=== PATIENT | male | born 1975 | race Caucasian/White ===

== ENCOUNTER 2023-11-13 08:15 | Emergency (ER) | payer OTHER, SELFPAY ==
[2023-11-13 08:23] VITALS: BP 162/86
--- NOTE | 2023-11-13 08:52 | ED.GENMED ---
History of Present Illness
General
Chief Complaint: Abdominal Symptoms
Source: patient
Exam Limitations: none
Time Seen by Provider: 11/13/23 08:28
Nursing documentation reviewed up to this point in time: agreed with
History of Present Illness
History of Present Illness:
Patient is a 48-year-old male who presents to the ER for evaluation. Patient reports since Friday, for the past 3 days he has had intermittent vomiting and watery diarrhea. He has had in general the symptoms since September but the symptoms have seemed
to increase over the past 3 days. At times he reports he gets constipated. He feels abdominal discomfort and bloating. He reports this feels similar to when he had C. difficile 4 to 5 months ago. He does report he recently was on amoxicillin
last week for sinus infection. He denies any bloody diarrhea. Denies any fever or chills. He denies any weight loss. His last colonoscopy was 1 year ago. He denies any fever chills urinary problems.
Past History
Past History
ED Past Medical History: HTN, Other and Other
ED Past Surgical History: Other
Social History
Tobacco: Smoker
Alcohol: None
Personal:
Living: with family
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
Family History
Family History: Hypertension and Early CAD (dad - stents placed in his 50's grandfather - [place] in his 50's)
Review of Systems
Review of Systems
Allergies reviewed?: Yes
All Other Systems: ROS reviewed and negative except as documented in HPI and ROS
Constitutional: Reports no symptoms; Denies fever, fatigue or chills
EENT: Reports no symptoms
Respiratory: Reports no symptoms
Cardiac: Reports no symptoms
ABD/GI: Reports abdominal pain, nausea, vomiting and diarrhea
: Reports no symptoms
Skin: Reports no symptoms
Neurological: Reports no symptoms
Psychiatric: Reports no symptoms
Phy Exam
General Physical Exam
General Presentation: no apparent distress
General age: appears stated age
General Skin: warm and dry
General Habitus: normal
General Mental: alert
General Hydration: dry mucous membranes
Gastrointestinal Exam
Gastrointestinal Exam: soft and other (non specific abd tenderness)
Neurological Exam
Neurological Exam: alert and oriented x3
Musculoskeletal Exam
Musculoskeletal Exam: full ROM
Skin Exam
Skin Exam: normal color and warm/dry
Course
Orders/Labs/Results
Orders:
Orders
11/13/23 08:48
IV Insert/Care/Rem.- Treatment PRN
11/13/23 08:49
CT Abd/Pel (IV only)-DH only Urgent
Comment:
Reason For Exam: abd pain bloating diarrhea/vomiting
11/13/23 08:50
0.9% Sodium Chloride 1000 ml [Nss] 1,000 ml IV BOLUS
11/13/23 09:23
Complete Blood Count/With Diff Urgent
Comprehensive Metabolic Panel Urgent
Lipase Urgent
11/13/23 11:33
Urinalysis Reflex To Culture Urgent
Date Specimen was Collected: 11/13/23
Time Specimen was Collected: 11:27
C DIFF [C difficile Antigen & Toxins] Urgent
EZEQUIEL Source: Feces/Stool
Specimen Description:
Date Specimen was Collected: 11/13/23
Time Specimen was Collected: 11:27
11/13/23 11:34
Stool Culture Urgent
EZEQUIEL Source: Feces/Stool
Specimen Description:
Date Specimen was Collected: 11/13/23
Time Specimen was Collected: 11:27
Abnormal Lab Results
11/13/23 11/13/23
09:23 11:33
Absolute Neuts (auto) 6.8 H 10^3/uL
(1.4-6.5)
Lymphocytes % 15.9 L %
(20.5-51.1)
Sodium 133 L mmol/L
(135-145)
Potassium 3.4 L mmol/L
(3.5-5.1)
Glucose 165 H mg/dl
(70-99)
Total Bilirubin 2.6 H mg/dl
(0.2-1.3)
Urine Glucose 3+ A
(Negative)
11/13/23 09:23
11/13/23 09:23
Vital Signs
Initial and Last Documented VS:
Initial Vital Signs
Temp Pulse Resp BP Pulse Ox
98.8 F 104 18 162/86 96
11/13/23 08:23 11/13/23 08:23 11/13/23 08:23 11/13/23 08:23 11/13/23 08:23
Last Documented Vital Signs
Temp Pulse Resp BP Pulse Ox
98.8 F 89 18 138/77 95
11/13/23 08:23 11/13/23 11:30 11/13/23 11:30 11/13/23 11:30 11/13/23 11:30
MDM/Problems Addressed
Differential Diagnosis Includes:
not limited to: c diff viral syndrome, colitis.
MDM/Problems Addressed:
Patient is a 48-year-old male that complains of intermittent bloating nausea diarrhea constipation off and on since September. He complains of intermittent constipation diarrhea nausea bloating. No weight loss. History of C. difficile in the past was
recently on antibiotics and concerned about C. difficile. He presents awake alert no acute distress mild nonspecific abdominal tenderness no acute findings on CAT scan. Labs unremarkable. Patient does have an elevated bilirubin which is baseline
for him in the past. C. difficile negative. He is nontoxic no nausea vomiting here offered nausea medicine but he declined.
Will DC with outpatient GI follow-up
*Radiology
Radiology exam reviewed: radiology read reviewed
*Pulse Oximetry
Patient hypoxic: no
*Critical Care Note
Total Time (30-74mins, 75-104mins- exclusive of procedures): Not Applicable
ED Attending Note
-
Portions of this chart may have been created with voice recognition software.� Occasional wrong word or��sound alike� substitutions may have occurred due to the inherent limitations of voice recognition software.
Discharge Plan
Departure
Patient Disposition: Home (Routine Discharge)
Date of Disposition: 11/13/23
Time of Disposition: 13:19
Patient with high blood pressure during this ER visit?: Yes
Covid-19: Not Applicable
Discharge Problem:
Abdominal pain
Instructions: Abdominal Pain, BLOOD PRESSURE
Prescriptions:
No Action
atorvastatin 20 mg Tablet
20 mg PO DAILY
meloxicam 15 mg Tablet
15 mg PO QPM
nortriptyline 25 mg Capsule
25 mg PO BID
pregabalin 150 mg Capsule
150 mg PO BID
dapagliflozin propanediol [Farxiga] 5 mg Tablet
5 mg PO DAILY
Drysol Dab-O-Matic 20 % Solution
1 applic TOPICAL HSPRN PRN (Reason: excessive sweating)
Theragen Tablet
1 tab PO DAILY
metformin 500 mg Tablet Extended Release 24 Hr
1,500 mg PO QPM
buprenorphine-naloxone 8-2 mg Film
0.5 film BUCCAL BID
testosterone 20.25 mg/1.25 gram (1.62 %) Gel In Metered-Dose Pump
1 pump TOPICAL DAILY
Qbrexza 2.4 % Towelette
1 applic TOPICAL HSPRN PRN (Reason: forehead/stomach)
Patient Comments:
11/13/2023, prescribed HS but pt. takes HSPRN because he has trouble peeing after using it.
Ozempic 1 mg/dose (4 mg/3 mL) Pen Injector
2 mg SC GONZALEZ@0800
vitamin D3-vitamin K2
1 tab PO DAILY
Patient Comments:
11/13/2023, pt. unsure of strength.
Referrals:
Reji Melendez MD [Active] -
Roge Fulton MD [Family Provider] -
Activity Restrictions/Additional Instructions:
As discussed follow-up with your family doctor as well as GI specialist for further evaluation of symptoms. Return to the ER for any worsening of symptoms. Your labs were unremarkable. Your bilirubin which is elevated today has been elevated
several times the past .please follow-up with your family doctor to ensure that this is normal for you.
Interventions
Interventions:
*Risk Screen - Suicide Last Done: 11/13/23 08:23
*General Assessment Last Done: 11/13/23 08:23
*Neglect/Abuse Screening Last Done: 11/13/23 08:23
*ED COVID-19 Vaccine History Last Done: 11/13/23 08:23
Discharge Date and Time
Print Language: ITALIAN
[2023-11-13] MEDS: NSS 1000 IV (09:21)
[2023-11-13 09:25] VITALS: BMI 42.1
[2023-11-13 09:36] LABS: % Basophils 0.2 % (0-2); % Eosinophils 2.8 % (0-6); % Immature Granulocytes 0.3 % (0-0.5); % Lymphocytes 15.9 % (20.5-51.1); % Monocytes 6.4 % (1.7-9.3); % Neutrophils 74.4 % (42.2-75.2); Absolute Eosinophils 0.3 10^3/uL (0-0.7); Absolute Lymphocytes 1.5 10^3/uL (1.2-3.4); Absolute Monocytes 0.6 10^3/uL (0.1-0.6); Absolute Neutrophils 6.8 10^3/uL (1.4-6.5); Hematocrit 41.6 % (39.0-52.0); Hemoglobin 14.8 g/dL (13.0-18.0); Mean Corp Hgb Conc. 35.6 g/dL (33.0-37.0); Mean Corpuscular Hgb 29.8 pg (27.0-31.0); Mean Corpuscular Volume 83.9 fL (80.0-94.0); Mean Platelet Volume 9.1 fL (7.4-10.4); Nucleated Red Blood Cells % 0 % (-); Platelet Count 170 10^3/uL (130-400); Red Blood Cell Count 4.96 10^6/uL (4.70-6.10); Red Cell Dist. Width 13.6 % (11.5-14.5); White Blood Cell Count 9.2 10^3/uL (4.8-10.8)
[2023-11-13 09:50] LABS: ALT (SGPT) 46 U/L (0-50); AST (SGOT) 32 U/L (17-59); Albumin 4.2 g/dl (3.5-5.0); Alkaline Phosphatase 68 U/L (38-126); Blood Urea Nitrogen 12 mg/dl (9-20); Calcium 8.7 mg/dl (8.4-10.2); Carbon Dioxide 23 mmol/L (22-30); Chloride 101 mmol/L (98-107); Estimated Creatinine Clearance > 125 ml/min; Glucose 165 mg/dl (70-99); Lipase 32 U/L (23-300); Potassium 3.4 mmol/L (3.5-5.1); Sodium 133 mmol/L (135-145); Total Bilirubin 2.6 mg/dl (0.2-1.3); Total Protein 6.8 g/dl (6.3-8.2); eGFR > 60.00
[2023-11-13 11:30] VITALS: BP 138/77
[2023-11-13 12:02] LABS: Urine Albumin Negative (Neg - Trace); Urine Bilirubin Negative (Negative); Urine Character Clear (Clear); Urine Color Yellow; Urine Glucose 3+ (Negative); Urine Ketone Negative (Negative); Urine Leukocyte Negative (Negative); Urine Nitrite Negative (Negative); Urine Occult Blood Negative (Negative); Urine Specific Gravity 1.005 (<1.030); Urine Urobilinogen Negative (Neg - 1+)
== END 2023-11-13 14:22 | disposition home or self-care (01) ==
LOC: EMR 08:15
PROVIDERS: Nurse Practitioner; EMERGENCY PHYSICIAN Emergency Medicine; FAMILY PHYSICIAN Internal Medicine
DX: R11.2 Nausea with vomiting, unspecified (principal); R19.7 Diarrhea, unspecified; K59.00 Constipation, unspecified; I10 Essential (primary) hypertension; F17.200 Nicotine dependence, unspecified, uncomplicated; Z82.49 Family history of ischemic heart disease and other diseases of the circulatory system
CPT/HCPCS: 99284; 96360; 74177; 80053; 81003; 83690; 85025; 87045; 87046; 87324; 87427; 87449; Q9967

== ENCOUNTER 2024-01-06 08:02 | Day surgery (SDC) | payer OTHER, SELFPAY ==
[2024-01-06 09:20] VITALS: BMI 40.4
[2024-01-06 09:21] VITALS: BMI 40.4
[2024-01-06 09:22] VITALS: BP 135/69
[2024-01-06 09:24] LABS: Glucose - Point of Care 151 mg/dl (70-99)
[2024-01-06 11:12] VITALS: BP 121/76
[2024-01-06 11:15] VITALS: BP 122/73
[2024-01-06 11:30] VITALS: BP 109/54
== END 2024-01-06 11:55 | disposition home or self-care (01) ==
LOC: GI 08:02
PROVIDERS: ATTENDING PHYSICIAN Specialist
DX: R11.2 Nausea with vomiting, unspecified (principal); R10.84 Generalized abdominal pain; K29.50 Unspecified chronic gastritis without bleeding
CPT/HCPCS: 43239; 88305; 82962; 88342

== ENCOUNTER → 2024-03-05 07:49 | Outpatient (REF) | payer OTHER, SELFPAY | LOC: RAD 07:49 | PROVIDERS: ATTENDING PHYSICIAN Specialist; FAMILY PHYSICIAN Family Medicine | DX: R11.2 Nausea with vomiting, unspecified (principal) | CPT/HCPCS: 78264; A9541 ==

== ENCOUNTER 2024-06-06 09:04 | Emergency (ER) | payer OTHER, SELFPAY ==
[2024-06-06 09:08] VITALS: BP 166/91
[2024-06-06 09:55] VITALS: BP 172/76
[2024-06-06 10:00] VITALS: BP 151/66
[2024-06-06 10:18] LABS: % Basophils 0.3 % (0-2); % Eosinophils 0.1 % (0-6); % Immature Granulocytes 0.4 % (0-0.5); % Lymphocytes 4.2 % (20.5-51.1); % Monocytes 5.6 % (1.7-9.3); % Neutrophils 89.4 % (42.2-75.2); Absolute Basophils 0.1 10^3/uL (0-0.2); Absolute Immature Granulocytes 0.1 10^3/uL (0-0.05); Absolute Lymphocytes 0.7 10^3/uL (1.2-3.4); Absolute Neutrophils 15.2 10^3/uL (1.4-6.5); Hematocrit 41.3 % (39.0-52.0); Hemoglobin 14.9 g/dL (13.0-18.0); Mean Corp Hgb Conc. 36.1 g/dL (33.0-37.0); Mean Corpuscular Hgb 30.2 pg (27.0-31.0); Mean Corpuscular Volume 83.8 fL (80.0-94.0); Mean Platelet Volume 9.5 fL (7.4-10.4); Nucleated Red Blood Cells % 0 % (-); Platelet Count 149 10^3/uL (130-400); Red Blood Cell Count 4.93 10^6/uL (4.70-6.10); Red Cell Dist. Width 13.4 % (11.5-14.5)
[2024-06-06 10:20] LABS: COVID-19 Antigen Positive (Negative)
[2024-06-06] MEDS: TYLENOL 1000 MG PO (10:26)
[2024-06-06 10:28] LABS: ALT (SGPT) 22 U/L (0-50); AST (SGOT) 21 U/L (17-59); Albumin 4.7 g/dl (3.5-5.0); Alkaline Phosphatase 72 U/L (38-126); Blood Urea Nitrogen 16 mg/dl (9-20); Calcium 8.8 mg/dl (8.4-10.2); Carbon Dioxide 23 mmol/L (22-30); Chloride 94 mmol/L (98-107); Glucose 165 mg/dl (70-99); Potassium 4.1 mmol/L (3.5-5.1); Sodium 132 mmol/L (135-145); Total Bilirubin 2.7 mg/dl (0.2-1.3); Total Protein 7.3 g/dl (6.3-8.2); eGFR > 60.00
--- NOTE | 2024-06-06 10:43 | ED.GENMED ---
History of Present Illness
General
Chief Complaint: Cold/Flu/URI Symptoms
Time Seen by Provider: 06/06/24 09:51
History of Present Illness
History of Present Illness:
49-year-old male with history of obstructive sleep apnea and prediabetes presenting to the emergency department for cough, shortness of breath, congestion, fever. Notes symptoms for the past 2 days. Denies known sick contacts. Reports history of
COVID in the past, however this feels worse. Denies chest pain. Denies any abdominal pain or GI symptoms.
Past History
Past History
ED Past Medical History: HTN, Other and Other
ED Past Surgical History: Other
Social History
Tobacco: Smoker
Alcohol: None
Personal:
Living: with family
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
Family History
Family History: Hypertension and Early CAD (dad - stents placed in his 50's grandfather - [place] in his 50's)
Phy Exam
Physical Exam
Physical Exam:
General: Well-appearing, no clinical signs of dehydration, nontoxic and in no acute distress
HEENT: protecting airway
Neck: appears supple
CV: Normal heart rate, regular rhythm
Resp: No accessory muscle use, no increased work of breathing, lungs clear to auscultation bilaterally
Abd: Soft and non-distended, no tenderness to palpation
Extremities: No deformities, no swelling
Neuro: alert, no focal neurologic deficit
: deferred
Rectal: deferred
Psych: Normal affect
Skin: Intact
Sepsis
Sepsis Screening
Sepsis Assessment: Sepsis Ruled Out
Sepsis Screen
Sepsis Screen: Sepsis Ruled Out
Date: 06/06/24
Time: 14:52
Course
Orders/Labs/Results
Orders:
Orders
06/06/24 09:16
Electrocardiogram (*1) Urgent
Reason for Study: Other
Other Reason for Exam: Possible Sepsis
Cardiac Monitoring- Treatment ONCE
EKG- Treatment ONCE
IV Insert/Care/Rem.- Treatment PRN
O2 Therapy [RESP] Urgent
Titrate/Wean O2 to maintain O2 sat greater than (%): 93
Special Instructions: TO MAINTAIN CONTINUOUS O2 SATS > OR = 93%
Pulse Ox/cont/shift [RESP] Urgent
Quantity: 1
Special Instructions: CONTINUOUS
06/06/24 10:06
COVID-19 Antigen Urgent
Source: Nasal Swab
Complete Blood Count/With Diff Urgent
Comprehensive Metabolic Panel Urgent
Lactic Acid Q4H
Comment: ON ICE, CANCEL 2ND ORDER IF FIRST LACTIC ACID LEVEL <2
Influenza A+B Rapid Molecular Urgent
EZEQUIEL Source: Nasal Swab
Specimen Description:
06/06/24 10:24
Acetaminophen [Tylenol] 1,000 mg PO NOW STA
CR Chest - 2 Views Urgent
Comment:
Reason For Exam: covid, sob
Abnormal Lab Results
06/06/24
10:06
WBC 17.0 H 10^3/uL
(4.8-10.8)
Abs Immat Gran (auto) 0.1 H 10^3/uL
(0-0.05)
Absolute Neuts (auto) 15.2 H 10^3/uL
(1.4-6.5)
Absolute Lymphs (auto) 0.7 L 10^3/uL
(1.2-3.4)
Absolute Monos (auto) 1.0 H 10^3/uL
(0.1-0.6)
Neutrophils % 89.4 H %
(42.2-75.2)
Lymphocytes % 4.2 L %
(20.5-51.1)
Sodium 132 L mmol/L
(135-145)
Chloride 94 L mmol/L
(98-107)
Creatinine 0.5 L mg/dL
(0.7-1.3)
Glucose 165 H mg/dl
(70-99)
Total Bilirubin 2.7 H mg/dl
(0.2-1.3)
SARS-CoV-2 Antigen Positive A
(Negative)
06/06/24 10:06
06/06/24 10:06
Vital Signs
Initial and Last Documented VS:
Initial Vital Signs
Temp Pulse Resp BP Pulse Ox
102.9 F H 115 22 166/91 93
06/06/24 09:08 06/06/24 09:08 06/06/24 09:08 06/06/24 09:08 06/06/24 09:08
Last Documented Vital Signs
Temp Pulse Resp BP Pulse Ox
100.2 F 106 20 140/80 93
06/06/24 12:00 06/06/24 12:00 06/06/24 12:00 06/06/24 12:31 06/06/24 12:31
MDM/Problems Addressed
MDM/Problems Addressed:
49-year-old male with history of obstructive sleep apnea presenting for cough, shortness of breath, congestion. Vital signs arrival significant for fever and mild tachycardia.
On exam patient is in no acute respiratory distress. Mildly low oxygenation, low normal. However lungs clear to auscultation. In the setting of fever and cough, concern for pneumonia versus viral syndrome such as COVID or influenza. Plan for
chest x-ray imaging, viral swabs. Will treat patient with IV fluids, Tylenol and reassess for improvement with plan for ambulatory pulse ox for assessment of O2 needs.
12:30 - Patient's labs show leukocytosis. Chest x-ray is consistent with a COVID-pneumonia. On ambulation, no acute desaturation. At this time stable for discharge, however strict return precautions were communicated including any increased
dyspnea. Patient verbalized understanding
*Critical Care Note
Total Time (30-74mins, 75-104mins- exclusive of procedures): Not Applicable
ED Attending Note
-
Portions of this chart may have been created with voice recognition software.� Occasional wrong word or��sound alike� substitutions may have occurred due to the inherent limitations of voice recognition software.
Discharge Plan
Departure
Patient Disposition: Home (Routine Discharge)
Date of Disposition: 06/06/24
Time of Disposition: 12:29
Patient with high blood pressure during this ER visit?: Yes
Condition: Good
Discharge Problem:
Pneumonia due to COVID-19 virus
Instructions: COVID-19 in adults - Discharge instructions, BLOOD PRESSURE
Prescriptions:
No Action
atorvastatin 20 mg Tablet
20 mg PO DAILY
meloxicam 15 mg Tablet
15 mg PO QPM
nortriptyline 25 mg Capsule
25 mg PO BID
pregabalin 150 mg Capsule
150 mg PO BID
dapagliflozin propanediol [Farxiga] 5 mg Tablet
5 mg PO DAILY
Drysol Dab-O-Matic 20 % Solution
1 applic TOPICAL HSPRN PRN (Reason: excessive sweating)
Theragen Tablet
1 tab PO DAILY
metformin 500 mg Tablet Extended Release 24 Hr
1,500 mg PO QPM
buprenorphine-naloxone 8-2 mg Film
0.5 film BUCCAL BID
testosterone 20.25 mg/1.25 gram (1.62 %) Gel In Metered-Dose Pump
1 pump TOPICAL DAILY
Qbrexza 2.4 % Towelette
1 applic TOPICAL HSPRN PRN (Reason: forehead/stomach)
Patient Comments:
11/13/2023, prescribed HS but pt. takes HSPRN because he has trouble peeing after using it.
Ozempic 1 mg/dose (4 mg/3 mL) Pen Injector
2 mg SC GONZALEZ@0800
vitamin D3-vitamin K2
1 tab PO DAILY
Patient Comments:
11/13/2023, pt. unsure of strength.
Referrals:
Ruddy Bryan MD [Family Provider] -
Stand Alone Forms: Return to Work
Activity Restrictions/Additional Instructions:
You were seen in the emergency department for cough and upper respiratory symptoms
You were found to have COVID-19. Your chest x-ray did show signs of COVID-pneumonia. Please return immediately to the hospital with any increased difficulty breathing. Continue to take Tylenol and Motrin as needed for your fevers
Please follow-up closely with your primary care physician.
Return to the emergency department for any worsening of your symptoms, or any development of chest pain, difficulty breathing, abdominal pain with persistent vomiting and inability to tolerate food or liquid by mouth (concern for dehydration),
weakness, headache or confusion, fever greater than 100.4, or any additional symptoms that are concerning to you.
Thank you for choosing [facility].
Interventions
Interventions:
*Risk Screen - Suicide Last Done: 06/06/24 09:08
*General Assessment Last Done: 06/06/24 09:08
*Neglect/Abuse Screening Last Done: 06/06/24 09:08
ED- Fall Risk Assessment Last Done: 06/06/24 12:47
*ED COVID-19 Vaccine History Last Done: 06/06/24 09:56
*Nursing Disposition Last Done: 06/06/24 12:47
ED- Pulmonary Assessment Last Done: 06/06/24 09:56
Discharge Date and Time
Discharge Date/Time: 06/06/24 12:51
Print Language: ARABIC
[2024-06-06 11:00] VITALS: BP 146/72
[2024-06-06 12:31] VITALS: BP 140/80
== END 2024-06-06 12:51 | disposition home or self-care (01) ==
LOC: EMR 09:04
PROVIDERS: EMERGENCY PHYSICIAN Student in an Organized Health Care Education/Training Program; FAMILY PHYSICIAN Family Medicine
DX: U07.1 COVID-19 (principal); J12.82 Pneumonia due to coronavirus disease 2019; R00.0 Tachycardia, unspecified; Z11.52 Encounter for screening for COVID-19; G47.33 Obstructive sleep apnea (adult) (pediatric); I10 Essential (primary) hypertension; F17.200 Nicotine dependence, unspecified, uncomplicated; R73.03 Prediabetes; Z86.16 Personal history of COVID-19
CPT/HCPCS: 99285; 94760; 71046; 80053; 83605; 85025; 87502; 87811; 93005

== ENCOUNTER 2024-11-22 16:05 | Emergency (ER) | payer OTHER, SELFPAY ==
[2024-11-22 16:08] VITALS: BP 151/92
[2024-11-22 16:50] LABS: Hematocrit 40.4 % (39.0-52.0); Hemoglobin 14.6 g/dL (13.0-18.0); Mean Corp Hgb Conc. 36.1 g/dL (33.0-37.0); Mean Corpuscular Volume 84.3 fL (80.0-94.0); Nucleated Red Blood Cells % 0 % (-); Platelet Count 156 10^3/uL (130-400); Red Cell Dist. Width 12.7 % (11.5-14.5)
[2024-11-22 17:11] LABS: ALT (SGPT) 28 U/L (0-50); AST (SGOT) 23 U/L (17-59); Albumin 4.6 g/dl (3.5-5.0); Alkaline Phosphatase 63 U/L (38-126); Blood Urea Nitrogen 13 mg/dl (9-20); Calcium 8.8 mg/dl (8.4-10.2); Carbon Dioxide 21 mmol/L (22-30); Chloride 102 mmol/L (98-107); Glucose 210 mg/dl (70-99); Potassium 3.9 mmol/L (3.5-5.1); Sodium 132 mmol/L (135-145); Total Protein 6.8 g/dl (6.3-8.2); eGFR > 60.00
[2024-11-22 17:13] LABS: Troponin I < 0.012 ng/ml
[2024-11-22 19:31] VITALS: BP 139/69
--- NOTE | 2024-11-22 19:56 | ED.GENMED ---
History of Present Illness
General
Chief Complaint: Blood Pressure Problem
Source: patient and spouse
Time Seen by Provider: 11/22/24 19:33
History of Present Illness
History of Present Illness:
This patient is a 49-year-old male who states that recently he was diagnosed with migraines and was started on a new medication. He describes a typical migraine as 'pressure' typically on the top/back of his head associated with blurry vision,
occasional nausea, and phono and photophobia. On Friday, he developed a typical migraine for him described as this pressure associated with blurry vision and feeling flushed. He also noticed that his heart was racing which he said felt like 'an
anxiety' type of racing. He took his migraine medication with minimal relief of symptoms. Symptoms continued yesterday and a family member checked his blood pressure and it was noted to be 180/90. He states that he does not have an established
prior medical history of hypertension and has not treated for it. He was encouraged by his family to go to the emergency department yesterday but he declined. Today, he notes his symptoms are markedly improved, but was finally convinced to go to
the ER to get 'checked out'. He denies numbness, tingling, focal weakness, change in speech, change in balance, double vision, trouble swallowing, chest pain or pressure, back pain that is new, dyspnea, abdominal pain, or other complaints. He
describes his headache as mild. His headache when it developed was not sudden or maximal in onset, and is without radiation.
Past History
Past History
ED Past Medical History: HTN, Hypercholesterolemia and Other (Prediabetes, chronic pain, migraines)
ED Past Surgical History: Other (Spinal stimulator, appendectomy, back surgery)
Social History
Tobacco: Former smoker
Alcohol: None
Drug: None
Personal:
Living: with family
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
Family History
Family History: Hypertension and Early CAD (dad - stents placed in his 50's grandfather - [place] in his 50's)
Phy Exam
Physical Exam
Physical Exam:
GENERAL: Alert , in no apparent distress
EYE: pupils equal and reactive, EOMI, no nystagmus, no objective photophobia
NECK: Supple, no significant adenopathy.
ENT: o/p clr, mmm.
CARDIAC: Regular rate and rhythm .
LUNGS: Clear breath sounds bilaterally, no acute respiratory distress, no wheezes/rales/rhonchi
ABDOMEN: Soft, without focal tenderness, no r/g, no cvat
NEUROLOGICAL: Alert and oriented, no focal neuro deficits with the exception of chronic longstanding motor weakness and right foot, [id number] normal, motor 5 out of 5 except as stated, sensory intact, cranial nerves II through XII intact,
visual treviño intact
SKIN: Warm and dry, skin intact.
MUSCULOSKELETAL: No edema, well perfused.
PSYCH: Normal and appropriate interaction.
Course
Orders/Labs/Results
Orders:
Orders
11/22/24 16:10
Electrocardiogram (*1) Urgent
Reason for Study: Hypertension, Benign
CT Head W/o Iv Contrast Urgent
Comment:
Reason For Exam: head pressure with blurry vision
EKG- Treatment ONCE
11/22/24 16:32
Complete Blood Count/With Diff Urgent
Comprehensive Metabolic Panel Urgent
Troponin I Urgent
Abnormal Lab Results
11/22/24
16:32
Sodium 132 L mmol/L
(135-145)
Carbon Dioxide 21 L mmol/L
(22-30)
Creatinine 0.5 L mg/dL
(0.7-1.3)
Glucose 210 H mg/dl
(70-99)
Total Bilirubin 1.6 H mg/dl
(0.2-1.3)
11/22/24 16:32
11/22/24 16:32
Vital Signs
Initial and Last Documented VS:
Initial Vital Signs
Temp Pulse Resp BP Pulse Ox
98.2 F 89 20 151/92 96
11/22/24 16:08 11/22/24 16:08 11/22/24 16:08 11/22/24 16:08 11/22/24 16:08
Last Documented Vital Signs
Temp Pulse Resp BP Pulse Ox
98.2 F 89 20 151/92 96
11/22/24 16:08 11/22/24 16:08 11/22/24 16:08 11/22/24 16:08 11/22/24 16:08
*Pulse Oximetry
SaO2: 96
Oxygen Mode of Delivery: Room air
Update Note
Update Note:
Patient presents to the Emergency Department with __headache, blurry vision, palpitations, elevated blood pressure
Number and Complexity of Problems Addressed at the Encounter
� Chronic conditions affecting care:
� Acute Exacerbation and/or Progression of Chronic Illness:
� Differential Diagnosis includes: But not limited to migraine, anxiety, subarachnoid hemorrhage, CVA, tension headache, arrhythmia, eye injury/pathology, etc. etc.
Amount and/or Complexity of Data to be Reviewed and Analyzed
� I performed an independent evaluation of and my interpretation is:
EKG: Read by me, normal sinus rhythm, no acute ischemia
CT: Possible Chiari I malformation, mild volume loss, otherwise NAD. Note patient/ given copy of this report, verbally advised regarding these findings and the need for follow-up regarding
Xrays:
Laboratory Studies: Generally unremarkable, mild hyperglycemia
Other:
� Review of other/old records reveals:
� Clinical information was obtained by an independent historian: who is bedside
� Prescriptions/Medications Considered but not given:
� Further testing considered but not performed:
Risk of Complications and/or Morbidity or Mortality of Patient Management
� Social determinants of health affecting care:
� Discussion with other providers (PCP, Hospitalists, Consultants, etc):
� Escalation of care including admission/observation vs risk of discharge considered: Blood pressure noted to be elevated here however I would not recommend at this time beginning hypertensive medication but rather very close
follow-up within the next 24 to 48 hours with his doctor. Patient has strong social support and established relationship with a physician that he can see promptly. He will also bring his CAT scan report. He declines any medication for pain. His
neurological exam is normal/baseline, and does not demonstrate any 'red flag' findings in history or physical to suggest more worrisome etiologies such as subarachnoid, stroke, etc. Eye exam is normal. Discussed with patient importance of
follow-up and reasons to return the ER.
ED Attending Note
-
Portions of this chart may have been created with voice recognition software.� Occasional wrong word or��sound alike� substitutions may have occurred due to the inherent limitations of voice recognition software.
Discharge Plan
Departure
Patient Disposition: Home (Routine Discharge)
Date of Disposition: 11/22/24
Time of Disposition: 20:03
Patient with high blood pressure during this ER visit?: Yes
Condition: Good
Discharge Problem:
Headache
Instructions: Headaches in adults, BLOOD PRESSURE
Prescriptions:
No Action
atorvastatin 20 mg Tablet
20 mg PO DAILY
meloxicam 15 mg Tablet
15 mg PO QPM
nortriptyline 25 mg Capsule
25 mg PO BID
pregabalin 150 mg Capsule
150 mg PO BID
dapagliflozin propanediol [Farxiga] 5 mg Tablet
5 mg PO DAILY
Drysol Dab-O-Matic 20 % Solution
1 applic TOPICAL HSPRN PRN (Reason: excessive sweating)
Theragen Tablet
1 tab PO DAILY
metformin 500 mg Tablet Extended Release 24 Hr
1,500 mg PO QPM
buprenorphine-naloxone 8-2 mg Film
0.5 film BUCCAL BID
testosterone 20.25 mg/1.25 gram (1.62 %) Gel In Metered-Dose Pump
1 pump TOPICAL DAILY
Qbrexza 2.4 % Towelette
1 applic TOPICAL HSPRN PRN (Reason: forehead/stomach)
Patient Comments:
11/13/2023, prescribed HS but pt. takes HSPRN because he has trouble peeing after using it.
Ozempic 1 mg/dose (4 mg/3 mL) Pen Injector
2 mg SC GONZALEZ@0800
vitamin D3-vitamin K2
1 tab PO DAILY
Patient Comments:
11/13/2023, pt. unsure of strength.
Activity Restrictions/Additional Instructions:
IT IS VERY IMPORTANT THAT YOU SEE YOUR DOCTOR IN CLOSE FOLLOW-UP THIS WEEK. YOU ARE NOTED TO HAVE ELEVATED BLOOD PRESSURE WHICH NEEDS CLOSE ATTENTION. OF NOTE, THE MEDICATION THAT YOU ARE TAKING FOR MIGRAINE CAN CONTRIBUTE TO ELEVATED BLOOD
PRESSURE. ALSO, YOUR CAT SCAN REPORT HAS FINDINGS THAT NEED CLOSE FOLLOW-UP. IF YOU DEVELOP NEW RECURRENT OR WORSENING HEADACHE, ANY NUMBNESS, WEAKNESS, DOUBLE VISION, CHANGE IN SPEECH, CHANGE IN BALANCE, SEVERE NECK PAIN, OR OTHER WORRISOME
SIGNS, PLEASE RETURN TO THE ER IMMEDIATELY!
Interventions
Interventions:
*General Assessment Last Done: 11/22/24 16:08
Discharge Date and Time
Print Language: UKRAINIAN
[2024-11-22 19:58] VITALS: BMI 44.0
[2024-11-22 20:00] VITALS: BP 136/73
== END 2024-11-22 20:34 | disposition home or self-care (01) ==
LOC: EMR 16:05
PROVIDERS: Emergency Medicine; EMERGENCY PHYSICIAN Emergency Medicine; FAMILY PHYSICIAN Family Medicine
DX: R51.9 Headache, unspecified (principal); R11.0 Nausea; H53.8 Other visual disturbances; R23.2 Flushing; I10 Essential (primary) hypertension; E78.00 Pure hypercholesterolemia, unspecified; R73.03 Prediabetes; G89.29 Other chronic pain; Z87.891 Personal history of nicotine dependence
CPT/HCPCS: 99284; 70450; 80053; 84484; 85025; 93005

== ENCOUNTER 2025-01-19 14:26 | Inpatient (IN) | payer OTHER, SELFPAY ==
[2025-01-19] VITALS (11 sets, daily range): BP systolic 119–186; BP diastolic 67–122; BMI 43.2
--- NOTE | 2025-01-19 06:09 | ED.GENMED ---
History of Present Illness
General
Chief Complaint: Back Pain
Source: patient
Exam Limitations: none
Time Seen by Provider: 01/19/25 05:42
History of Present Illness
History of Present Illness:
50-year-old male complaining of right mid back pain. Came on at 10 PM last night. Has had this intermittently for months. Typically will last about a day. This current episode is more severe. This is different than his chronic low back pain but
has become a new issue. He typically gets trigger point injections by his pain management person at this site. He denies fever chills acute numbness tingling weakness bowel or bladder issues acutely.
Past History
Past History
ED Past Medical History: HTN, Hypercholesterolemia and Other (Prediabetes, chronic pain, migraines)
ED Past Surgical History: Other (Spinal stimulator, appendectomy, back surgery)
Social History
Tobacco: Former smoker
Alcohol: None
Drug: None
Personal:
Living: with family
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
Family History
Family History: Hypertension and Early CAD (dad - stents placed in his 50's grandfather - [place] in his 50's)
Phy Exam
Physical Exam
Physical Exam:
GENERAL: Alert and oriented in no apparent distress
EYE: Orbits normal.
NECK: Supple
CARDIAC: Regular rate and rhythm without any obvious murmurs.
LUNGS: Clear breath sounds,normal
ABDOMEN: Soft, without focal tenderness or distention
NEUROLOGICAL: Alert and oriented , speech normal. Grossly nonfocal except for some mild weakness to the right leg especially with dorsiflexion. This apparently is chronic
SKIN: Warm and dry, no rash or lesion, no discoloration, skin intact.
MUSCULOSKELETAL: No edema,no deformity.Good color. Some back pain with straight leg raising of the left leg. Able to sit up towards the side of the bed without difficulty. Lidocaine patch over the right mid back. Tenderness at this location no
swelling or erythema
PSYCH: Normal and appropriate interaction.
Course
Orders/Labs/Results
Orders:
Orders
01/19/25 05:55
IV Insert/Care/Rem.- Treatment PRN
0.9% Sodium Chloride 500 ml [Nss] 500 ml IV BOLUS
Acetaminophen 1000MG/100Ml [Ofirmev] 1,000 mg in 100 ml IV ONCE
Acetaminophen IV Indication:: ED Narcotic Naive Pt-ONCE
Ketorolac [Toradol] 15 mg IV NOW STA
diazePAM [Valium Injection] 5 mg IV NOW STA
01/19/25 05:56
CT Abd/pel Without Iv Or Oral Urgent
Comment:
Reason For Exam: Ongoing right mid back pain
01/19/25 06:26
Complete Blood Count/With Diff Urgent
Comprehensive Metabolic Panel Urgent
Comment: LFT ADD ON
Direct Bilirubin Urgent
Comment: LFT ADD ON
Lipase Urgent
Comment: ADD ON
01/19/25 06:28
Urinalysis Reflex To Culture Urgent
Date Specimen was Collected: 01/19/25
Time Specimen was Collected: 06:27
01/19/25 06:40
Add On- LAB Urgent
Tests Added?: lfts,lipase
01/19/25 08:43
US Abdomen Limited Urgent
Comment:
Reason For Exam: Right back pain. Gallstones. Elevated LFTs
01/19/25 11:22
Piperacillin/Tazo 3.375 Gram [Zosyn] 3.375 gram in 50 ml IV NOW
01/19/25 12:39
Ketorolac [Toradol] 15 mg IV NOW STA
Abnormal Lab Results
01/19/25 01/19/25
06:26 06:28
Absolute Neuts (auto) 8.8 H 10^3/uL
(1.4-6.5)
Absolute Lymphs (auto) 0.9 L 10^3/uL
(1.2-3.4)
Neutrophils % 85.0 H %
(42.2-75.2)
Lymphocytes % 8.9 L %
(20.5-51.1)
Creatinine 0.5 L mg/dL
(0.7-1.3)
Glucose 313 H mg/dl
(70-99)
Total Bilirubin 1.5 H mg/dl
(0.2-1.3)
Direct Bilirubin 0.9 H mg/dl
(0.0-0.4)
AST 114 H U/L
(17-59)
ALT 55 H U/L
(0-50)
Urine Urobilinogen 2+ A
(Neg - 1+)
Urine Glucose 4+ A
(Negative)
01/19/25 06:26
01/19/25 06:26
Vital Signs
Initial and Last Documented VS:
Initial Vital Signs
Temp Pulse Resp BP Pulse Ox
98.6 F 75 16 166/83 95
01/19/25 04:30 01/19/25 04:30 01/19/25 04:30 01/19/25 04:30 01/19/25 04:30
Last Documented Vital Signs
Temp Pulse Resp BP Pulse Ox
98.6 F 76 20 123/80 96
01/19/25 04:30 01/19/25 06:25 01/19/25 06:25 01/19/25 08:00 01/19/25 08:15
MDM/Problems Addressed
Differential Diagnosis Includes:
Patient with right mid back pain. Most likely a exacerbation of an ongoing back issue. He has no acute neurologic symptoms. Nothing to suspect an infectious issue. However with this location will check for kidney stone. Pain management include
NSAID IV Tylenol. He only took 1 dose of this in the last 24 hours. Also a dose of Valium. Patient is on Suboxone.
*Radiology
Radiology exam reviewed: radiology read reviewed (Distended gallbladder with gallstones. Similar to 1 year ago. Hepatomegaly. Enlarged spleen. Diverticulosis. Abdominal wall hernia. Degenerative changes) and other (Suspicious for acute
cholecystitis)
*Pulse Oximetry
SaO2: 95
Oxygen Mode of Delivery: Room air
Patient hypoxic: no
*Critical Care Note
Total Time (30-74mins, 75-104mins- exclusive of procedures): Not Applicable
Data Reviewed
Review of Other/Old Records Reveals: Labs, Records and Testing
Update Note
Update Note:
Patient feels moderately improved and is stable. He has findings on his CT that I do not feel acutely explain his ongoing back pain. The gallbladder distention has been similar. Await LFTs and lipase. Normal white count. No right upper quadrant
tenderness. Copy of CT report given to patient to follow-up enlarged spleen. LFTs mildly elevated. Ultrasound suspicious for acute cholecystitis. Seen by surgery. They agree. Admission for definitive management. Antibiotics ordered.
ED Attending Note
-
Portions of this chart may have been created with voice recognition software.� Occasional wrong word or��sound alike� substitutions may have occurred due to the inherent limitations of voice recognition software.
Discharge Plan
Departure
Patient Disposition: Admit
Date of Disposition: 01/19/25
Time of Disposition: 11:23
Presentation/result/management discussed w/ accepting MD/DO: Surgery
Discharge Problem:
Acute on chronic back pain, Cholelithiasis, Hepatosplenomegaly, Hyperglycemia, Incidental abdominal wall hernia
Instructions: Low Back Pain (DC), Gallstones (DC), High blood sugar in adults - ED (DC), BLOOD PRESSURE
Prescriptions:
No Action
atorvastatin 20 mg Tablet
20 mg PO DAILY
meloxicam 15 mg Tablet
15 mg PO QPM
nortriptyline 25 mg Capsule
25 mg PO BID
Theragen Tablet
1 tab PO DAILY
metformin 500 mg Tablet Extended Release 24 Hr
1,500 mg PO QPM
buprenorphine-naloxone 8-2 mg Film
1 film BUCCAL BID
testosterone 20.25 mg/1.25 gram (1.62 %) Gel In Metered-Dose Pump
1 pump TOPICAL DAILY
Qbrexza 2.4 % Towelette
1 applic TOPICAL HSPRN PRN (Reason: forehead/stomach sweating)
Patient Comments:
11/13/2023, prescribed HS but pt. takes HSPRN because he has trouble peeing after using it.
pregabalin 200 mg capsule
200 mg PO BID
Linzess 145 mcg capsule
145 mcg PO DAILY@0730
dapagliflozin propanediol [Farxiga] 10 mg tablet
5 mg PO DAILY
Referrals:
Alphonso Lott DO [Active, Hematology / Oncology] - Next open appointment
Ruddy Bryan MD [Family Provider, Family Practice] - Follow up in 2-3 days
Jesus Slaughter MD [Active, Surgical] - Next open appointment
Activity Restrictions/Additional Instructions:
I would recommend follow-up with hematology/oncology for your chronically enlarged spleen
I would also recommend follow-up with general surgery concerning your gallstones
Follow-up with your pain management tomorrow
Return sooner with increased pain fever abdominal pain vomiting or any other concerning symptoms
Follow your blood sugar closely for the hyperglycemia
Interventions
Interventions:
*Risk Screen - Suicide Last Done: 01/19/25 04:30
*General Assessment Last Done: 01/19/25 05:24
*Neglect/Abuse Screening Last Done: 01/19/25 05:24
*ED- Fall Risk Assessment Last Done: 01/19/25 05:24
*ED COVID-19 Vaccine History Last Done: 01/19/25 05:24
ED-Musculoskeletal Assessment Last Done: 01/19/25 05:24
Discharge Date and Time
Print Language: SOUTH [place]UDANESE
[2025-01-19] MEDS: NSS 500 IV (06:22)
[2025-01-19] MEDS: OFIRMEV 100 IV (06:23)
[2025-01-19] MEDS: VALIUM INJECTION 5 MG IV (06:24)
[2025-01-19] MEDS: TORADOL 15 MG IV ×2 (06:24→12:45)
[2025-01-19 06:39] LABS: Hematocrit 40.3 % (39.0-52.0); Hemoglobin 14.5 g/dL (13.0-18.0); Mean Corp Hgb Conc. 36.0 g/dL (33.0-37.0); Mean Corpuscular Volume 83.1 fL (80.0-94.0); Nucleated Red Blood Cells % 0 % (-); Platelet Count 161 10^3/uL (130-400); Red Cell Dist. Width 14.0 % (11.5-14.5)
[2025-01-19 06:45] LABS: Urine Character Clear (Clear)
[2025-01-19 06:59] LABS: Blood Urea Nitrogen 14 mg/dl (9-20); Calcium 9.3 mg/dl (8.4-10.2); Carbon Dioxide 25 mmol/L (22-30); Chloride 102 mmol/L (98-107); Glucose 313 mg/dl (70-99); Potassium 4.5 mmol/L (3.5-5.1); Sodium 136 mmol/L (135-145); eGFR > 60.00
[2025-01-19 08:37] LABS: ALT (SGPT) 55 U/L (0-50); AST (SGOT) 114 U/L (17-59); Albumin 4.7 g/dl (3.5-5.0); Alkaline Phosphatase 69 U/L (38-126); Lipase 51 U/L (23-300); Total Protein 6.9 g/dl (6.3-8.2)
--- NOTE | 2025-01-19 11:38 | CON.GS ---
Consultation
-
Date/Time Consultation Performed: 01/19/25
Requesting Provider: Dav
Performing Provider: Kasandra
Reason for Consultation: Biliary colic
Medical History
-
Chief Complaint: Back pain
History of Present Illness:
50m with acute onset back pain that began last night around 10pm. The pain was localized to his right mid back, non radiating, without clear exacerbating nor relieving factors. He does have chronic back pain managed by Pain Mgmt. He is on multiple
meds for that including suboxone and has had steroid injections as well. He denies abd pain, endorses nausea, denies vomiting. Denies changes to stool and urine. This am he ate a bagel with cheese and elaine while in the ED. He denies exacerbation of
pain with eating. He is not currently on ozempic as it caused gastroparesis.
Past Medical History
Past Medical History: Hypercholesterolemia, NIDDM and Other (chronic back pain)
Past Surgical History: Appendectomy
Social History
Tobacco: Former Smoker
Alcohol: None
Drug: None
Personal:
Living: With Family
Employment: Employed
Family History
Family History: Reviewed & Noncontributory
Allergies / Home Medications
Allergy/AdvReac Type Severity Reaction Status Date / Time
No Known Allergies Allergy Verified 01/19/25 04:34
�Medication �Instructions �Recorded �Confirmed �Type
atorvastatin 20 mg tablet 20 mg PO DAILY 11/28/22 01/19/25 History
dapagliflozin propanediol 5 mg 5 mg PO DAILY 11/28/22 01/19/25 History
tablet (Farxiga)
meloxicam 15 mg tablet 15 mg PO QPM 11/28/22 01/19/25 History
nortriptyline 25 mg capsule 25 mg PO BID 11/28/22 01/19/25 History
pregabalin 150 mg capsule 150 mg PO BID 11/28/22 01/19/25 History
aluminum chloride 20 % topical 1 applic topical HSPRN PRN 11/13/23 01/19/25 History
solution (Drysol Dab-O-Matic) excessive sweating
buprenorphine 8 mg-naloxone 2 mg 0.5 film buccal BID 11/13/23 01/19/25 History
sublingual film
glycopyrronium tosylate 2.4 % 1 applic topical HSPRN PRN 11/13/23 01/19/25 History
towelette (Qbrexza) forehead/stomach
metformin 500 mg tablet,extended 1,500 mg PO QPM 11/13/23 01/19/25 History
release 24 hr
semaglutide 1 mg/dose (4 mg/3 mL) 2 mg SC GONZALEZ@0800 11/13/23 01/19/25 History
subcutaneous pen injector (Ozempic)
testosterone 1 pump topical DAILY abdomen 11/13/23 01/19/25 History
therapeutic multivitamin 1 tab PO DAILY 11/13/23 01/19/25 History
vitamin D3-vitamin K2 1 tab PO DAILY 11/13/23 01/19/25 History
Review of Systems
-
A 10 point review of systems was completed, and was negative except as per HPI.
Physical Exam
Vital Signs
Temp Pulse Resp BP Pulse Ox
98.6 F 76 20 123/80 96
01/19/25 04:30 01/19/25 06:25 01/19/25 06:25 01/19/25 08:00 01/19/25 08:15
01/18/25 01/19/25 01/20/25
06:59 06:59 06:59
Actual Weight 139 kg
Lab Results
01/19/25 06:26
01/19/25 06:26
WBC 10.3 10^3/uL (4.8-10.8) 01/19/25 06:26
Hgb 14.5 g/dL (13.0-18.0) 01/19/25 06:26
Hct 40.3 % (39.0-52.0) 01/19/25 06:26
Plt Count 161 10^3/uL (130-400) 01/19/25 06:26
Abs Immat Gran (auto) 0.0 10^3/uL (0-0.05) 01/19/25 06:26
Neutrophils % 85.0 % (42.2-75.2) H 01/19/25 06:26
Physical Exam
General: Well Developed, Well Nourished and No Apparent Distress
HEENT: Normocephalic and Anicteric
GI: Soft, Tender (mild-mod ttp to RUQ and epigastrium) and Obese
Skin: Warm and Dry
Neuro: AO x 3
Psych: Calm
Data Reviewed
-
CT Scan: Image Personally Visualized and interpreted, Report Reviewed by me, Discussed with Patient and Discussed with Family
Ultrasound: Image Personally Visualized and interpreted, Report Reviewed by me, Discussed with Patient and Discussed with Family
Labs: Labs Reviewed by me, Discussed with Physician and Discussed with Patient
Old Records: Reviewed
Assessment / Plan
-
50M with possible ACC
AFVSS, ttp on exam to RUQ and epigastrium
Ate breakfast (bagel/cheese/elaine) 9am this morning while in ED without exacerbation of pain
No leukocytosis, left shift noted
LFTs mildly elevated
US with distended gb with stones, GBWT to 4.5mm, no PCF, CBD 7.8mm
CT with distended gb, prominent CBD
Plan:
Hospitalist admit
DM mgmt per Hospitalist
IV abx
Trend LFTs
NPO/IVF
Plan for OR for lap keila with cholangiogram, timing TBD
Tentatively added to tomorrow's schedule
--- NOTE | 2025-01-19 12:25 | HPS.HSE ---
Family Physician
-
Family Physician: Ruddy Bryan
Chief Complaint
-
abdominal pain
History of Present Illness
Mr. Reji Dennis is a 50 yo man with hx HLD, NIDDM, chronic back pain with spinal stimulator presents to the ER right mid back pain.
Patient states he felt some back pain yesterday then it got acutely worse overnight and so he came to the ER this morning. Pain stretches from right upper quadrant to back. + nausea. It is tender with palpation. No vomiting. No fevers.
No chest pain or shortness of breath.
Medical History
Past Medical History
Past Medical History: Reports Other (HLD, NIDDM, chronic back pain with spinal stimulato)
Past Surgical History: Reports Appendectomy
Social History
Tobacco: Non-smoker
Alcohol: None
Family History
Family History: Not pertinent
Allergies / Home Medications
Allergies reflects when Allergies were last updated in [facility].
Home Medications with original date entered in [facility]
Allergy/Medication List:
Allergies
Allergy/AdvReac Type Severity Reaction Status Date / Time
No Known Allergies Allergy Verified 01/19/25 04:34
Home Medications
atorvastatin 20 mg tablet 20 mg PO DAILY 11/28/22
meloxicam 15 mg tablet 15 mg PO QPM 11/28/22
nortriptyline 25 mg capsule 25 mg PO BID 11/28/22
buprenorphine 8 mg-naloxone 2 mg sublingual film 1 film buccal BID 11/13/23
glycopyrronium tosylate 2.4 % towelette (Qbrexza) 1 applic topical HSPRN PRN forehead/stomach sweating 11/13/23
metformin 500 mg tablet,extended release 24 hr 1,500 mg PO QPM 11/13/23
testosterone 1 pump topical DAILY abdomen 11/13/23
therapeutic multivitamin 1 tab PO DAILY 11/13/23
dapagliflozin propanediol 10 mg tablet (Farxiga) 5 mg PO DAILY 01/19/25
linaclotide 145 mcg capsule (Linzess) 145 mcg PO DAILY@0730 01/19/25
pregabalin 200 mg capsule 200 mg PO BID 01/19/25
Review of Systems
-
History Source: Patient
A 12 point ROS was completed and negative except as noted: Yes
Physical Exam
Vital Signs
Vital Signs
Temp Pulse Resp BP Pulse Ox
98.6 F 76 20 123/80 96
01/19/25 04:30 01/19/25 06:25 01/19/25 06:25 01/19/25 08:00 01/19/25 08:15
Physical Exam
General: No Apparent Distress
HEENT: PERRLA
Respiratory: Clear; No Wheezes
Cardiac: S1/S2 and Regular Rhythm
GI: Other (tenderness RUQ, no rebound or guarding )
Musculoskeletal: No Edema
Skin: Warm and Dry; No Rash
Neuro: AO x 3
Psych: Calm
Laboratory Results
-
01/19/25 06:26
01/19/25 06:26
Laboratory Results
Total Bilirubin 1.5 mg/dl (0.2-1.3) H 01/19/25 06:26
AST 114 U/L (17-59) H 01/19/25 06:26
ALT 55 U/L (0-50) H 01/19/25 06:26
Alkaline Phosphatase 69 U/L (38-126) 01/19/25 06:26
Lipase 51 U/L (23-300) 01/19/25 06:26
Data Reviewed
-
Diagnostic Radiology: Report Reviewed by me
Lab Data: Labs Reviewed by me
Impression/Plan
-
Mr. Reji Dennis is a 50 yo man with hx HLD, NIDDM, chronic back pain with spinal stimulator presents to the ER right mid back pain.
Triage VS: T 98.6, P 75, RR 16, BP 166/83, SpO2 95%
LABS: WBC 10.3, Hg 14.5, PLT 161, Na 136, K+ 4.5Cr 0.5, Glucose 313, T. Bili 1.5, AST 114, ALT 55, Lipase 51
CT A/P
IMPRESSION:
1. Severely distended gallbladder containing cholelithiasis (similar in appearance to 11/13/2023).
2. Mild hepatomegaly.
3. Moderate to severe splenomegaly with progressive slow interval increase in size of the spleen dating back to 03/25/2013. Diagnostic possibilities are (1) portal hypertension, (2) anemia, or (3) neoplastic disease (myeloproliferative disease or
lymphoma).
4. Moderate diverticulosis in the sigmoid colon.
5. Moderate distention of the urinary bladder.
6. Severe midline diastases of the rectus abdominis muscles with a small fat-containing anterior abdominal wall hernia.
7. Severe multilevel discogenic degenerative disease and facet joint arthrosis in the lumbar spine.
8. Spinal stimulator in place.
Abdomen US:
IMPRESSION:
Relative prominent size gallbladder containing stones with mild wall thickening, no pericholecystic fluid. No tenderness is elicited with the ultrasound transducer over the gallbladder. Mildly enlarged common bile duct. No findings to suggest
intrahepatic biliary tract dilatation.
Probable diffuse fatty liver.
MAR: IV Zosyn @ 11AM; Toradol, Valium, Tylenol 500cc fluid
Acute Cholecystitis
-seen by GS in the ER, plan is for OR
-admit to med/surg
-continue IV Zosyn
-keep NPO
-IVF
-pain control (will give IV Dilaudid, higher affinity for opiate receptors - increase dose if not responsive)
-IV Zofran PRN
NIDDM
-hold NETWORK PROJECT MANAGER metformin and Farxiga
-ISS
Chronic Pain
Spinal Stimulator
-NETWORK PROJECT MANAGER Suboxone
-NETWORK PROJECT MANAGER Nortriptyline, Pregabalin
DVT PPx SCD
FULL CODE
[2025-01-19] MEDS: ZOSYN 50 IV ×2 (12:35→18:08)
[2025-01-19] MEDS: LR 500 IV (13:52)
[2025-01-19] MEDS: DILAUDID 0.5 MG IV (13:52)
[2025-01-19] MEDS: ZOFRAN 4 MG IV (13:52)
--- NOTE | 2025-01-19 15:05 | EDRN ---
this RN called the receiving unit and notified them that paper report was going to be tubed up
[2025-01-19 16:21] LABS: Glucose - Point of Care 185 mg/dl (70-99)
[2025-01-19] MEDS: LR 1000 IV (16:26)
[2025-01-19] MEDS: TYLENOL 650 MG PO ×2 (16:33→21:46)
[2025-01-19] MEDS: NOVOLOG FLEXPEN-LOW RESISTANCE SC (16:38)
--- NOTE | 2025-01-19 16:52 | PTCARENOTE ---
Patient arrived from ED via wheelchair. Temp elevated at 103.1. Ice applied, tylenol administered. Provider notified. Blood cultures x 2 q 30 minutes ordered. BP elevated. IV fluids started. This RN called to verify that she will be bringing in
patient's CPAP from home. Patient OOB with standby. Upon screening, patient flagged as mild suicide risk; thus, per protocol, 1:1 initiated. Skin check completed. Patient oriented to room. 1:1 now at bedside.
--- NOTE | 2025-01-19 17:30 | PTCARENOTE ---
patient and his are adamant about patient not receiving IV dilaudid; instead, they would prefer IV toradol and valium. Provider notified. awaiting orders.
[2025-01-19] MEDS: LYRICA 200 MG PO (19:41)
[2025-01-19] MEDS: PAMELOR 25 MG PO (19:41)
[2025-01-19] MEDS: SUBUTEX 8 MG SL (19:41)
[2025-01-19] MEDS: TORADOL 10 MG IV (19:42)
[2025-01-19 23:51] LABS: Glucose - Point of Care 183 mg/dl (70-99)
[2025-01-20] VITALS (8 sets, daily range): BP systolic 124–146; BP diastolic 64–73; BMI 43.2
[2025-01-20] MEDS: ZOSYN 50 IV ×3 (00:06→12:40)
--- NOTE | 2025-01-20 01:39 | PTCARENOTE ---
Pt 2300 VS with fever of 101.3, PRN Tylenol administered ice packs placed under arms fan in room skin is flushed. Temp reassessed at 0000, 100.5. Temp then assessed again at 0117 of 102.6 orally. Pt was not yet due for another PRN Tylenol, provider
notified IV tylenol ordered.
[2025-01-20] MEDS: OFIRMEV 100 IV (01:45)
[2025-01-20] MEDS: LR 1000 IV (02:47)
[2025-01-20] MEDS: TORADOL 10 MG IV ×2 (02:55→08:42)
[2025-01-20 06:20] LABS: Glucose - Point of Care 178 mg/dl (70-99)
[2025-01-20] MEDS: TYLENOL 650 MG PO ×2 (06:46→13:40)
[2025-01-20 08:26] LABS: Glucose - Point of Care 166 mg/dl (70-99)
[2025-01-20] MEDS: SUBUTEX 8 MG SL ×2 (08:41→20:50)
[2025-01-20] MEDS: NOVOLOG FLEXPEN-LOW RESISTANCE 1 UNITS SC ×2 (08:41→12:39)
[2025-01-20] MEDS: LYRICA 200 MG PO ×2 (08:41→20:50)
[2025-01-20] MEDS: PAMELOR 25 MG PO ×2 (08:50→20:50)
[2025-01-20 08:53] LABS: Hematocrit 38.8 % (39.0-52.0); Hemoglobin 13.4 g/dL (13.0-18.0); Mean Corp Hgb Conc. 34.5 g/dL (33.0-37.0); Mean Corpuscular Volume 86.0 fL (80.0-94.0); Nucleated Red Blood Cells % 0 % (-); Platelet Count 124 10^3/uL (130-400); Red Cell Dist. Width 14.7 % (11.5-14.5)
[2025-01-20 09:04] LABS: ALT (SGPT) 263 U/L (0-50); AST (SGOT) 347 U/L (17-59); Albumin 4.0 g/dl (3.5-5.0); Alkaline Phosphatase 97 U/L (38-126); Blood Urea Nitrogen 20 mg/dl (9-20); Calcium 8.6 mg/dl (8.4-10.2); Carbon Dioxide 23 mmol/L (22-30); Chloride 103 mmol/L (98-107); Estimated Creatinine Clearance > 125 ml/min; Glucose 158 mg/dl (70-99); Magnesium 1.8 mg/dl (1.6-2.3); Potassium 3.9 mmol/L (3.5-5.1); Sodium 137 mmol/L (135-145); Total Protein 6.3 g/dl (6.3-8.2); eGFR > 60.00
[2025-01-20 09:27] LABS: Glycohemoglobin (HgbA1c) 8.0 % (4.0-5.6)
--- NOTE | 2025-01-20 09:35 | CON.GI ---
Addendum entered and electronically signed by Simona Graves DO 01/20/25 13:49:
The patient was seen and examined by me independently in collaboration with the nurse practitioner.
Past medical history/social history/medications/allergies/family history reviewed.
Lab data and imaging data reviewed.
Reji Dennis is a 50-year-old obese male with past medical history of diabetes, chronic back pain with spinal cord stimulator, history of appendectomy, hyperlipidemia, IBS with constipation presents with acute onset back pain, different than his
chronic back pain which is much lower. He denies any nausea, vomiting, abdominal pain, he is tender to palpation in epigastrium and right upper quadrant, no rebound or guarding.
Ultrasound and admission showed distended gallbladder with stones, gallbladder wall thickening, no pericholecystic fluid, CBD 7.8 mm. He subsequently had a CT scan which showed a distended gallbladder and prominent common bile duct. Initially plan
was for lap keila w/ IOC, however, bilirubin worsened from 1 --> 6.3, AST 347, ALT 263, febrile to 103.1 overnight, mildly tachycardic but otherwise normotensive. No leukocytosis, but does have mild thrombocytopenia, imaging demonstrates enlarged
spleen. He denies etoh use.
Plan:
-NPO
-continue IV zosyn
-EUS +/- ERCP today with Dr. Suh
-Cholecystectomy to follow GI procedures
-outpatient f/u with Dr. Ramirez for further workup of splenomegaly and thrombcytopenia, liver described as normal but prior imaging shows fatty liver, suspect MASLD given significant risk factors
Addendum entered and electronically signed by SHANNAN Martines 01/20/25 11:02:
correction to below seen with Dr. Chante Graves DO
Original Note:
Consultation
-
Date/Time Consultation Requested: 01/20/25914
Date/Time Consultation Performed: 01/20/25929
Requesting Provider: Shadi Cisneros MD
Performing Provider: SHANNAN Lares, Maya Fields MD
Reason for Consultation: fever, leukocytosis, back/abdominal pain
Medical History
Chief Complaint / HPI
History of Present Illness:
Pt is a 50yo with hx DM, possible gastroparesis with prior + GE scan but had been on Ozempic, chronic back pain with pain stimulator, HTN, diverticulitis, IBS- constipation, sleep apnea, HTN, hyperlipidemia presents with mid back pain. On admission
noted with bili 1.5, D bili 0.9, AST 114, ALT 55, alk phos 69 and lipase of 51. After admission pt was noted with fever and rise in LFT's to 6.3, AST 347, ALT 263. Platelet drop to 124 after admission INR 1.51. Ct on admission distended
gallbladder with stones, HM, moderate to severe splenomegaly, diverticulosis, bladder distention, diastasis with fat containing abd wall hernia, DDD, spinal stimulator, US limited with prominent GB with stones no fluid no tenderness with transducer,
mildly enlarge CBD non intrahepatic dilatation. Pt was also noted with suicidal ideations and placed on 1:1 on admission.
In review with patient he admits to chronic back pain. He had atypical mid back pain several weeks ago then recurrence with nausea prompting admission. He also had epigastric pain that is worse about 10 minutes after eating and with movement.
He was on Ozempic with increased nausea and stopped 6 months ago but admits to 40 lbs wt loss. He has chronic dysphagia with dry throat and food sticking at time in upper esophagus and chronic constipation with no change in stool with use of
linzess 290mcg daily and weekly BM. He denies change in stool color but did have dark urine since admission. He otherwise denies vomiting, diarrhea, or rectal bleeding. Follow OP with Dr. Ramirez 01/06/24 EGD- Large amount of food in fundus. Bx
negative HP or celiac11/28/22 COLON- Medium AC lipoma. Diverticulosis. Random bx negative. Pt denies narcotic use or anticoagulation. on chronic Meloxicam.
Past Medical History
Past Medical History: HTN, Hypercholesterolemia, NIDDM and Other ( chronic pain, migraines, diverticulitis, gastroparesis, sleep apnea, IBS, constipation )
Past Surgical History: Appendectomy and Other (spinal stimulator, wisdom teeth )
Social History
Tobacco: Vaping
Alcohol: None (denies hx heavy ETOH in past )
Drug: None
Personal:
Living: With Family
Employment: Employed
Family History
Family History: Other (no family hx gallbladder, liver or pancreatic problems )
Allergies / Home Medications
Allergy/AdvReac Type Severity Reaction Status Date / Time
No Known Allergies Allergy Verified 01/19/25 04:34
�Medication �Instructions �Recorded
atorvastatin 20 mg tablet 20 mg PO DAILY 11/28/22
meloxicam 15 mg tablet 15 mg PO QPM 11/28/22
nortriptyline 25 mg capsule 25 mg PO BID 11/28/22
buprenorphine 8 mg-naloxone 2 mg 1 film buccal BID 11/13/23
sublingual film
glycopyrronium tosylate 2.4 % 1 applic topical HSPRN PRN 11/13/23
towelette (Qbrexza) forehead/stomach sweating
metformin 500 mg tablet,extended 1,500 mg PO QPM 11/13/23
release 24 hr
testosterone 1 pump topical DAILY abdomen 11/13/23
therapeutic multivitamin 1 tab PO DAILY 11/13/23
dapagliflozin propanediol 10 mg 5 mg PO DAILY 01/19/25
tablet (Farxiga)
linaclotide 145 mcg capsule 145 mcg PO DAILY@0730 01/19/25
(Linzess)
pregabalin 200 mg capsule 200 mg PO BID 01/19/25
Review of Systems
-
History Source: Patient
Constitutional: Reports Fever and Weight Loss (40 lbs last week )
EENT: Reports No Symptoms
Respiratory: Reports No Symptoms
Cardiac: Reports No Symptoms
Abdomen/GI: Reports Abdominal Pain and Nausea
: Reports Dark Urine
Musculoskeletal: Reports Other (chronic back pain with acute mid back pain )
Skin: Reports No Symptoms
Neurological: Reports No Symptoms
Endocrine: Reports No Symptoms
Hematologic/Lymphatic: Reports No Symptoms
Vital Signs
Temp Pulse Resp BP Pulse Ox
101.6 F H 90 20 137/70 95
01/20/25 07:40 01/20/25 07:40 01/20/25 07:40 01/20/25 07:40 01/20/25 07:40
Physical Exam
Exam
General: Well Developed, Well Nourished and No Apparent Distress
HEENT: Normocephalic and Anicteric
Respiratory: Clear
Cardiac: Regular Rhythm
GI: Soft, Non Distended and Tender (epigastric pain )
Musculoskeletal: No Clubbing and No Cyanosis
Skin: Warm and Dry
Neuro: Awake, Alert and AO x 3
Psych: Calm
Results
WBC 5.9 10^3/uL (4.8-10.8) 01/20/25 07:51
Hgb 13.4 g/dL (13.0-18.0) 01/20/25 07:51
Hct 38.8 % (39.0-52.0) L 01/20/25 07:51
MCV 86.0 fL (80.0-94.0) 01/20/25 07:51
Plt Count 124 10^3/uL (130-400) L D 01/20/25 07:51
Absolute Neuts (auto) 5.2 10^3/uL (1.4-6.5) 01/20/25 07:51
Sodium 137 mmol/L (135-145) 01/20/25 07:51
Potassium 3.9 mmol/L (3.5-5.1) 01/20/25 07:51
Chloride 103 mmol/L (98-107) 01/20/25 07:51
Carbon Dioxide 23 mmol/L (22-30) 01/20/25 07:51
BUN 20 mg/dl (9-20) 01/20/25 07:51
Creatinine 0.7 mg/dL (0.7-1.3) 01/20/25 07:51
Calcium 8.6 mg/dl (8.4-10.2) 01/20/25 07:51
Total Bilirubin 6.3 mg/dl (0.2-1.3) H D 01/20/25 07:51
AST 347 U/L (17-59) H 01/20/25 07:51
ALT 263 U/L (0-50) H 01/20/25 07:51
Alkaline Phosphatase 97 U/L (38-126) 01/20/25 07:51
Lipase 51 U/L (23-300) 01/19/25 06:26
Diagnostic Image Results:
03/05/24 GES- Abnormal. T 1/2 is 200 minutes (normal <110). At 120 minutes 82% remains (normal 30%). At 240 minutes 36% remains (normal 10%)
01/06/24 EGD- Large amount of food in fundus. Bx negative HP or celiac
11/28/22 COLON- Medium AC lipoma. Diverticulosis. Random bx negative.
08/12/22 CT AP- Hepatic steatosis. Splenomegaly
08/12/22 US- Cholelithiasis and GB hydrops w/o acute cholecystitis. Hepatomegaly and increased echogenicity, most common fatty liver. Splenomegaly
08/12/22 C DIFF- AG positive, toxin negative
03/28/13 COLON ([facility])- Diverticulosis. Random bx neg
08/19/06 COLON ([place])- Bx desc colon neg
01/20/25 CT Abd/pel Without Iv Or Oral
1. Severely distended gallbladder containing cholelithiasis (similar in appearance to 11/13/2023).
2. Mild hepatomegaly.
3. Moderate to severe splenomegaly with progressive slow interval increase in size of the spleen dating back to 03/25/2013. Diagnostic possibilities are (1) portal hypertension, (2) anemia, or (3) neoplastic disease (myeloproliferative disease or
lymphoma).
4. Moderate diverticulosis in the sigmoid colon.
5. Moderate distention of the urinary bladder.
6. Severe midline diastases of the rectus abdominis muscles with a small fat-containing anterior abdominal wall hernia.
7. Severe multilevel discogenic degenerative disease and facet joint arthrosis in the lumbar spine.
8. Spinal stimulator in place.
01/19/25 US Abdomen Limited
Relative prominent size gallbladder containing stones with mild wall thickening, no pericholecystic fluid. No tenderness is elicited with the ultrasound transducer over the gallbladder. Mildly enlarged common bile duct. No findings to suggest
intrahepatic biliary tract dilatation.
Probable diffuse fatty liver.
Assessment / Plan
-
Pt is a 50yo with hx DM, possible gastroparesis with prior + GE scan but had been on Ozempic, chronic back pain with pain stimulator, HTN, diverticulitis, IBS- constipation, sleep apnea, HTN, hyperlipidemia presents with mid back pain. On admission
noted with bili 1.5, D bili 0.9, AST 114, ALT 55, alk phos 69 and lipase of 51. After admission pt was noted with fever and rise in LFT's to 6.3, AST 347, ALT 263. platelets drop to 124 after admission INR 1.51 Ct on admission distended
gallbladder with stones, HM, moderate to severe splenomegaly, diverticulosis, bladder distention, diastasis with fat containing abd wall hernia, DDD, spinal stimulator, US limited with prominent GB with stones no fluid no tenderness with transducer,
mildly enlarge CBD non intrahepatic dilatation. Pt was also noted with suicidal ideations and placed on 1:1 on admission. In review with patient he admits to chronic back pain. He had atypical mid back pain several weeks ago then recurrence with
nausea prompting admission. He also had epigastric pain that is worse about 10 minutes after eating and with movement. He was on Ozempic with increased nausea and stopped 6 months ago but admits to 40 lbs wt loss. He has chronic dysphagia with
dry throat and food sticking at time in upper esophagus and chronic constipation with no change in stool with use of linzess 290mcg daily and weekly BM. He denies change in stool color but did have dark urine since admission. Pt denies narcotic use
or anticoagulation. on chronic Meloxicam.
-mid back/epigastric pain
-increased LFT's with rise after admission
-abnormal CT with cholelithiasis and GB distention, UD with ductal dilatation
-fever
-recent 40 lb wt loss s/p Ozempic use 6 months ago
-elevated INR
-mild thrombocytopenia
-suicidal ideation with 1:1 on admission
-imaging with moderate to severe splenomegaly/hepatomegaly
-chronic dysphagia
-chronic constipation
-bladder distention per imaging
other med problems:
-chronic back pain with spinal stimulator/meloxicam use
-diverticulitis
-diastasis with fat containing abd wall hernia on imaging
-DM-hx gastroparesis but imaging done on Ozempic
-HTN
-sleep apena
-hyperlipidemia
-
PLAN:
etiology of symptoms with concern for cholecystitis with marked rise in LFT's with fever overnight concern for choledocholithisis/cholangitis vs other pathology with underlying hepatosplenomegaly
pt declines MRI
Plan for tentative EUS/ERCP -- awaiting Dr. Suh review of films
NPO
cont abx. blood cx pending
eventual work up for marked spleenomegaly/hepatomegaly-- also noted mild INR elevation and drop in platelets and denies ETOH use
OP follow up for complaints of dysphagia and chronic constipation
OP follow with
for psych eval with suidical ideations
reviewed with Dr. Mccormack
appreicate surigcal input for eventual keila
offered to call family pt declined
-
-
Thank you for consultation and allowing me to participate in the patient's care. Please call the [facility] GI physician during the after hours with any questions or concerns.
--- NOTE | 2025-01-20 09:39 | W.PN.GS2 ---
Addendum entered and electronically signed by Shadi Cisneros MD 01/20/25 10:08:
I was physically present and personally performed the winters portions of the surgical evaluation and/or procedure with the resident. I discussed the findings, reviewed the resident�s note, and confirmed the medical decision-making. I provided direct
supervision as required and agree with the assessment and plan as documented with the following additions/corrections:
Patient reports improved but continued upper abdominal pain predominantly in the epigastric and right upper quadrant with radiation to the back. Mild nausea/anorexia but no vomiting. Subjective fevers and sweats overnight.
Tmax 103.1, T-current 101.6, heart rate in the 90s, normotensive
NAD AAO x 3 but flushed/sweats and acutely ill-appearing
ABD: Soft, nondistended, tenderness palpation in the epigastrium and right upper quadrant. Some voluntary guarding on deep palpation. No rebound rigidity.
White blood cell count remains normal but mild thrombocytopenia now. LFTs with considerable elevations overnight with total bilirubin 6.3, AST 347 and ALT 263.
Assessment/plan: 50-year-old male initially admitted with suspected acute calculous cholecystitis however now exhibiting signs of cholangitis and given elevation of LFTs and common bile duct dilation on ultrasound up to 7.7 mm strong suspicion for
choledocholithiasis.
In the setting discussed with patient and recommended evaluation for choledocholithiasis prior to proceeding with cholecystectomy
Consulted GI service and discussed case. Will defer to GI options for EUS/ERCP versus MRCP
Continue n.p.o., IV fluids and supportive care
Zosyn for empiric antibiotic coverage of biliary tree
Timing of cholecystectomy pending clearance of common bile duct
Updated hospitalist
Confirmed with patient any of his concerns or questions were fully addressed.
Original Note:
Today's Communication / Plan
-
GI consulted for evaluation/intervention of suspected ascending colon
Cholecystectomy recommended, deferred for now pending GI evaluation
N.p.o. for anticipated procedures
Pain control, antiemetics as needed
IVF's while NPO
Assessment / Plan
-
Assessment: Patient is a 50-year-old male who presented to the emergency department with back and right upper quadrant pain with nausea vomiting. Since admission, patient has been febrile to 103.1 and intermittently tachycardic. Physical exam
revealed RUQ tenderness to palpation. Abdominal ultrasound and CTAP revealed a distended gallbladder with cholelithiasis, mild gallbladder wall thickening, and mild CBD enlargement (7.7 mm). Lab studies remarkable for a T. bili of 6.3. Based on
the aforementioned findings, acute cholecystitis with likely ascending cholangitis is suspected.
Plan:
GI consulted due to concern for ascending cholangitis, possible need for MRCP or ERCP
Cholecystectomy recommended for acute cholecystitis, though deferred for now pending evaluation and possible intervention by GI for suspected ascending cholangitis
Antibiotics: Piperacillin�tazobactam
N.p.o. pending anticipated procedures
Pain control, antiemetics as needed
IVF while NPO
Subjective Data
-
Date of Service: January 20, 2025
Patient seen at the bedside on hospital day #2. Patient states he feels hot, with a headache and dry mouth. He continues to have some abdominal pain. Some nausea today. Vomited yesterday, but none since. No BM since admission, but this is
normal for him. No flatus. Denies fatigue or chills.
Objective Data
-
Intake and Output
01/19/25 01/20/25 01/21/25
06:59 06:59 06:59
Intake Total 1300 / 1300
Balance 1300 / 1300
Intake:
Oral fluids 0 / 0
IV fluids (Total) 1200 / 1200
IV piggybacks 100 / 100
Other:
Number of approximated MODERATE 1
amounts of urine
Vital Signs
Temp Pulse Resp BP Pulse Ox
101.6 F H 90 20 137/70 95
01/20/25 07:40 01/20/25 07:40 01/20/25 07:40 01/20/25 07:40 01/20/25 07:40
Lab Results
01/20/25 07:51
01/20/25 07:51
Calcium 8.6 mg/dl (8.4-10.2) 01/20/25 07:51
Magnesium 1.8 mg/dl (1.6-2.3) 01/20/25 07:51
Total Bilirubin 6.3 mg/dl (0.2-1.3) H D 01/20/25 07:51
Direct Bilirubin 0.9 mg/dl (0.0-0.4) H 01/19/25 06:26
AST 347 U/L (17-59) H 01/20/25 07:51
ALT 263 U/L (0-50) H 01/20/25 07:51
Alkaline Phosphatase 97 U/L (38-126) 01/20/25 07:51
Total Protein 6.3 g/dl (6.3-8.2) 01/20/25 07:51
Albumin 4.0 g/dl (3.5-5.0) 01/20/25 07:51
Physical Exam
-
General: No apparent distress. Appears tired. No jaundice or scleral icterus.
Abdominal: Diffusely TTP, particularly in the RUQ. Soft. No rigidity, guarding, or rebound tenderness. Nondistended. No ecchymoses or erythema.
Patient has a randolph catheter: No
Patient has a central line: No
--- NOTE | 2025-01-20 09:56 | CM ---
hospice manager reviewed patient's chart and met with patient this am, patient is currently on 1:1 as patient ruled in through nursing assessment, psychiatry have been consulted. Patient lives with his spouse and children in a one story home with one
step to enter, patient works, drives, and is independent with adl's and ambulation, patient has a CPAP machine in home.
PCP: Dr Christelle Bryan
Pharmacy: [facility] in [place]
Plan; Home with family when stable.
[2025-01-20 10:38] LABS: INR 1.51; PT 18.7 Sec (11.4-14.6)
--- NOTE | 2025-01-20 11:11 | W.PN.HOSP.TC ---
Today's Communication/Plan
-
IV Zosyn
NPO
GS and GI consults appreciated
DC 1:1
Assessment / Plan
Assessment / Plan
Mr. Reji Dennis is a 50 yo man with hx HLD, NIDDM, chronic back pain with spinal stimulator presents to the ER right mid back pain found to have e/o cholecystitis. Now with fevers and elevated liver enzymes this morning, concern for
choledocholithiasis.
CT A/P
IMPRESSION:
1. Severely distended gallbladder containing cholelithiasis (similar in appearance to 11/13/2023).
2. Mild hepatomegaly.
3. Moderate to severe splenomegaly with progressive slow interval increase in size of the spleen dating back to 03/25/2013. Diagnostic possibilities are (1) portal hypertension, (2) anemia, or (3) neoplastic disease (myeloproliferative disease or
lymphoma).
4. Moderate diverticulosis in the sigmoid colon.
5. Moderate distention of the urinary bladder.
6. Severe midline diastases of the rectus abdominis muscles with a small fat-containing anterior abdominal wall hernia.
7. Severe multilevel discogenic degenerative disease and facet joint arthrosis in the lumbar spine.
8. Spinal stimulator in place.
Abdomen US:
IMPRESSION:
Relative prominent size gallbladder containing stones with mild wall thickening, no pericholecystic fluid. No tenderness is elicited with the ultrasound transducer over the gallbladder. Mildly enlarged common bile duct. No findings to suggest
intrahepatic biliary tract dilatation.
Probable diffuse fatty liver.
MAR: IV Zosyn @ 11AM; Toradol, Valium, Tylenol 500cc fluid
Acute Cholecystitis
Concern for Choledocholithiasis with rising liver enzymes this AM
Sepsis 2/2 Above
-admitted to med/surg
-continue IV Zosyn
-keep NPO
-IVF
-pain control with PRN IV Toradol - patient has bad reaction to Toradol
-IV Zofran PRN
-appreciate GS consult and GI consult
NIDDM
-hold ICE [employer]AM [employer]KER metformin and Farxiga
-ISS
Report of SI - this occurred when patient was confused from Dilaudid. He is of sound mind this morning and denies any SI
-DC 1:1
Chronic Pain
Spinal Stimulator
-ICE CREAM MA[employer]ER Suboxone
-ICE CREAM MA[employer]ER Nortriptyline, Pregabalin
DVT PPx SCD
FULL CODE
51 minutes spent on patient care
Anticipated Discharge: > 48 hours
Subjective/Interval History
-
Date of Service: January 20, 2025
he continues to have pain RUQ
no vomiting
pain managed with Toradol
He states after Dilaudid given in ER he became very confused which has happened in past. He is not suicidal. He reports being depressed 2 years ago after he lost his brother, sister and father all in same year. He has been managing grief. Lives
at home with and children. He currently has no thoughts of wanting to hurt himself or others.
Objective Data
-
Labs:
Laboratory Results
01/20/25 01/20/25
07:51 10:19
WBC 5.9
Hgb 13.4
Hct 38.8 L
Plt Count 124 L D
PT 18.7 H
INR 1.51
Sodium 137
Potassium 3.9
Chloride 103
Carbon Dioxide 23
BUN 20
Creatinine 0.7
Glucose 158 H
Calcium 8.6
Total Bilirubin 6.3 H D
AST 347 H
ALT 263 H
Alkaline Phosphatase 97
Vital Signs:
Vital Signs
Temp Pulse Resp BP Pulse Ox
101.6 F H 90 20 137/70 95
01/20/25 07:40 01/20/25 07:40 01/20/25 07:40 01/20/25 07:40 01/20/25 07:40
I&O
01/19/25 01/20/25 01/21/25
06:59 06:59 06:59
Intake Total 1300 / 1300
Balance 1300 / 1300
Review of Systems
-
History Source: Patient
All other systems: Reviewed and negative
Physical Exam
-
General: No Apparent Distress
HEENT: PERRLA
Respiratory: Clear to Auscultation; Negative Wheezes
Cardiac: Regular Rhythm and S1/S2
GI: Soft, Nontender and Nondistended
Musculoskeletal: No Edema
Skin: Warm and Dry; Negative Rash
Neuro: AO x 3
Psych: Calm
Data Reviewed
-
Diagnostic Radiology: Report Reviewed by me
Labs: Labs Reviewed by me
--- NOTE | 2025-01-20 11:12 | PTCARENOTE ---
1:1 discontinued after evaluation by Dr. Mccormack.
[2025-01-20 12:02] LABS: Glucose - Point of Care 153 mg/dl (70-99)
[2025-01-20] MEDS: LR IV (14:47)
[2025-01-20 16:08] LABS: Glucose - Point of Care 180 mg/dl (70-99)
[2025-01-20 16:27] LABS: B.E. - POC -0.8 mmol/L; Glucose - POC 197 mg/dl (70-99); HCO3 - POC 23 mmol/L (21-28); Hematocrit - POC 43 % PCV (42-52); Hemodilution- POC No; Hemoglobin Calculated - POC 14.5; Ionized Calcium - POC 1.06 mmol/L (1.15-1.33); Lactate - POC 1.29 mmol/L (0.36-0.75); O2 Saturation %Calculated-POC 97.6 % (94-98); PCO2 - POC 33 mmHg (35-48); PO2 - POC 92 mmHg (83-108); Potassium - POC 3.2 mmol/L (3.5-5.1); Sodium - POC 135 mmol/L (136-145); Specimen Type - POC Arterial; pH - POC 7.45 (7.35-7.45)
[2025-01-20 16:28] LABS: Hematocrit 36.8 % (39.0-52.0); Hemoglobin 12.9 g/dL (13.0-18.0); Mean Corp Hgb Conc. 35.1 g/dL (33.0-37.0); Mean Corpuscular Volume 85.4 fL (80.0-94.0); Platelet Count 114 10^3/uL (130-400); Red Cell Dist. Width 14.4 % (11.5-14.5)
[2025-01-20 16:40] LABS: ALT (SGPT) 254 U/L (0-50); AST (SGOT) 307 U/L (17-59); Albumin 3.7 g/dl (3.5-5.0); Alkaline Phosphatase 104 U/L (38-126); Blood Urea Nitrogen 21 mg/dl (9-20); Calcium 8.1 mg/dl (8.4-10.2); Carbon Dioxide 23 mmol/L (22-30); Chloride 102 mmol/L (98-107); Estimated Creatinine Clearance > 125 ml/min; Glucose 188 mg/dl (70-99); Potassium 3.4 mmol/L (3.5-5.1); Sodium 134 mmol/L (135-145); Total Protein 5.8 g/dl (6.3-8.2); eGFR > 60.00
--- NOTE | 2025-01-20 16:45 | W.SUR.PREOP ---
Pre-Operative Surgical Note
-
I have examined this patient prior to the performance of the scheduled procedure.
The patient's condition is unchanged from the time of the current History and
Physical and the patient is able to undergo the scheduled procedure.
EUS negative for CBD stone. ongoing sepsis/sirs from presumably biliary/GB source
spoke with patient in recovery unit and discussed with patients . in agreement to proceed with lap keila/cholange this evening.
pt added onto the OR schedule.
lap keila with cholange reviewed in detail with diagram drawing including operative technique, alternative tx options, benefits ant potential risks such as but not limited to bleeding requiring transfusion, infectious/wound related complications,
iatrogenic injury to surrounding structures, bile duct injury, bile leak and typical post op recovery pending operative findings. informed consent obtained.
[2025-01-20] MEDS: ZOSYN IV (17:45)
--- NOTE | 2025-01-20 18:51 | W.IMMPOSTOP ---
Surgical Immed Post Op Note
-
Primary Surgeon: Shadi Cisneros MD
Assisting Surgeon: Lalito Sparrow MD
Pre-op Diagnosis: Acute calculous cholecystitis; biliary sepsis
Morbid obesity with BMI 43 and secondary hepatomegaly
Post-op Diagnosis: Acute calculous cholecystitis; biliary sepsis
Morbid obesity with BMI 43 and secondary hepatomegaly
Procedure Performed: Laparoscopic cholecystectomy with intraoperative cholangiogram; modifier 22 with increased complexity of surgery increasing typical operative time by greater than 50% due to presence of morbid obesity with hepatomegaly
Anesthesia Type: GETA +0.25% Marcaine with epinephrine
Specimen / Cultures: Gallbladder/none
Estimated Blood Loss: 22 mL
Complications: None immediate
Operative Findings: Distended gallbladder with both acute and probable chronic inflammation. Cyst needle decompression revealing dark sludge thick bile. Intraoperative cholangiogram suggestive of thick bile and sludge likely contributing to
obstructive jaundice and cholangitis but no obstructing choledocholithiasis identified. Common bile duct flushed numerous times through a transcystic approach. Cystic duct divided with Endo VERONICA stafford 30 mm stapler. Gallbladder removed off liver bed
intact and extracted at epigastric 12 mm trocar site which was enlarged to accommodate the large gallbladder.
Zuniga catheter was placed as patient was experiencing urinary retention -greater than 1 L dark returned. Zuniga catheter therefore left in place postoperatively.
Plan: Continue Zosyn and IV fluid resuscitation
Transfer to IMU post procedure for recovery monitoring
Clear liquids for comfort
A.m. labs
Updated patient's postoperatively via phone call
[2025-01-20 19:24] LABS: Glucose - Point of Care 186 mg/dl (70-99)
[2025-01-20] MEDS: NOVOLOG FLEXPEN-LOW RESISTANCE SC (20:49)
[2025-01-20] MEDS: NSS 1000 IV (20:49)
[2025-01-20 21:09] LABS: Glucose - Point of Care 179 mg/dl (70-99)
[2025-01-21] VITALS (12 sets, daily range): BP systolic 119–143; BP diastolic 57–78
[2025-01-21] MEDS: ZOSYN 50 IV ×4 (00:58→17:26)
[2025-01-21] MEDS: NSS 1000 IV (03:19)
[2025-01-21] MEDS: TORADOL 10 MG IV (03:52)
[2025-01-21 04:37] LABS: Hematocrit 35.0 % (39.0-52.0); Hemoglobin 12.3 g/dL (13.0-18.0); Mean Corp Hgb Conc. 35.1 g/dL (33.0-37.0); Mean Corpuscular Volume 85.0 fL (80.0-94.0); Platelet Count 108 10^3/uL (130-400); Red Cell Dist. Width 14.1 % (11.5-14.5)
[2025-01-21 04:44] LABS: ALT (SGPT) 285 U/L (0-50); AST (SGOT) 334 U/L (17-59); Albumin 3.6 g/dl (3.5-5.0); Alkaline Phosphatase 102 U/L (38-126); Blood Urea Nitrogen 16 mg/dl (9-20); Calcium 8.1 mg/dl (8.4-10.2); Carbon Dioxide 14 mmol/L (22-30); Chloride 107 mmol/L (98-107); Estimated Creatinine Clearance > 125 ml/min; Glucose 168 mg/dl (70-99); Potassium 4.4 mmol/L (3.5-5.1); Sodium 132 mmol/L (135-145); Total Protein 6.0 g/dl (6.3-8.2); eGFR > 60.00
[2025-01-21] MEDS: LR 1000 IV ×2 (05:19→15:09)
[2025-01-21] MEDS: SODIUM BICARBONATE 50 MEQ IV (05:19)
[2025-01-21 05:40] LABS: Hepatitis A Antibody, Total Negative (Negative); Hepatitis C Antibody Negative (Negative)
--- NOTE | 2025-01-21 06:04 | PTCARENOTE ---
Received verbal report from ADA Patel. Pt arrived to floor from PACU overnight. Pt drowsy and ox3. NSR on monitor. SpO2 96% on 2L NC. VS and assessment as documented.
CO2 was 14 this am and SHANNAN Luke made aware. IV Na bicarb Rx'd as well as LR @ 125 which is currently infusing. Pt currently resting in bed asleep with call new in reach.
--- NOTE | 2025-01-21 07:31 | W.PN.HOSP.TC ---
Addendum entered and electronically signed by Sofya Mccormack MD 01/21/25 08:12:
patient continue with randolph post-op; had urinary retention
-voiding trial tomorrow
-improve mobility
Original Note:
Today's Communication/Plan
-
see plan
Assessment / Plan
Assessment / Plan
Mr. Reji Dennis is a 50 yo man with hx HLD, NIDDM, chronic back pain with spinal stimulator presents to the ER right mid back pain found to have e/o cholecystitis. s/p ERCP without finding obstructing stone; s/p surgery with finding of inflamed
gallbladder
CT A/P
IMPRESSION:
1. Severely distended gallbladder containing cholelithiasis (similar in appearance to 11/13/2023).
2. Mild hepatomegaly.
3. Moderate to severe splenomegaly with progressive slow interval increase in size of the spleen dating back to 03/25/2013. Diagnostic possibilities are (1) portal hypertension, (2) anemia, or (3) neoplastic disease (myeloproliferative disease or
lymphoma).
4. Moderate diverticulosis in the sigmoid colon.
5. Moderate distention of the urinary bladder.
6. Severe midline diastases of the rectus abdominis muscles with a small fat-containing anterior abdominal wall hernia.
7. Severe multilevel discogenic degenerative disease and facet joint arthrosis in the lumbar spine.
8. Spinal stimulator in place.
Abdomen US:
IMPRESSION:
Relative prominent size gallbladder containing stones with mild wall thickening, no pericholecystic fluid. No tenderness is elicited with the ultrasound transducer over the gallbladder. Mildly enlarged common bile duct. No findings to suggest
intrahepatic biliary tract dilatation.
ERCP report 01/20/25:
Impression:
- LA Grade C reflux esophagitis.
- Erythematous mucosa in the gastric body.
- Normal duodenal bulb, first portion of the duodenum and second
portion of the duodenum.
- There was no sign of significant pathology in the common bile
duct.
- Multiple stones were visualized endosonographically in the
gallbladder body.
- A few enlarged lymph nodes were visualized in the roberto hepatis
region. Consistent with.
- Pancreatic parenchymal abnormalities consisting of hyperechoic
strands and hyperechoic foci were noted in the pancreatic head and
pancreatic body.
- There was no sign of significant pathology in the ampulla.
- There was no evidence of significant pathology in the left lobe
of the liver.
- No specimens collected.
Operative Report 01/20/25
Post-op Diagnosis: Acute calculous cholecystitis; biliary sepsis
Morbid obesity with BMI 43 and secondary hepatomegaly
Distended gallbladder with both acute and probable chronic inflammation. Cyst needle decompression revealing dark sludge thick bile.
Acute Cholecystitis
Sepsis 2/2 Above
-admitted to med/surg; transferred to IMU post-op given confusion post anesthesia and high fevers
-s/p ERCP on 01/20 without finding obstructing choledocholithiasis
-s/p OR following ERCP with finding of distended gallbladder with acute and likely chronic inflammation; dark sludge thick bile likely resulting in obstructive jaundice/cholangitis
-continue IV Zosyn
-clears, advance diet per surgery
-IVF - lower rate
-pain control with PRN IV Toradol - patient has bad reaction to dilaudid; he wants to try PRN morphine at low dose
-IV Zofran PRN
-appreciate GS consult and GI consults
Non-Gap Metabolic Acidosis
-repeat labs at 10AM
NIDDM
-hold GLOVE TURNER metformin and Farxiga
-ISS
Report of SI - this occurred when patient was confused from Dilaudid. He is of sound mind this morning and denies any SI
-DC 1:1
Chronic Pain
Spinal Stimulator
-GLOVE TURNER Suboxone
-GLOVE TURNER Nortriptyline, Pregabalin
DVT PPx SCD
FULL CODE
51 minutes spent on patient care
Anticipated Discharge: 24 - 48 hours
Subjective/Interval History
-
Date of Service: January 21, 2025
feeling much better post surgery
has some soreness
he states he tolerates morphine more than dilaudid
Objective Data
-
Labs:
Laboratory Results
01/20/25 01/21/25 01/21/25
16:02 04:04 10:00
WBC 7.5
Hgb 12.3 L
Hct 35.0 L
Plt Count 108 L
HCO3 Cancelled
Sodium 132 L Pending
Potassium 4.4 D Pending
Chloride 107 Pending
Carbon Dioxide 14 L* Pending
BUN 16 Pending
Creatinine 0.5 L Pending
Glucose 168 H Pending
Calcium 8.1 L Pending
Total Bilirubin 6.7 H
AST 334 H
ALT 285 H
Alkaline Phosphatase 102
Vital Signs:
Vital Signs
Temp Pulse Resp BP Pulse Ox
98.9 F 82 12 119/65 97
01/21/25 03:19 01/21/25 05:00 01/21/25 05:00 01/21/25 02:00 01/21/25 05:00
I&O
01/20/25 01/21/25 01/22/25
06:59 06:59 06:59
Intake Total 1300 / 1300 2995 / 2995
Output Total 2350 / 2350
Balance 1300 / 1300 645 / 645
Review of Systems
-
History Source: Patient
All other systems: Reviewed and negative
Physical Exam
-
General: No Apparent Distress and Obese
HEENT: PERRLA
Respiratory: Clear to Auscultation; Negative Wheezes
Cardiac: Regular Rhythm and S1/S2
GI: Soft, Nontender and Nondistended
Musculoskeletal: No Edema
Skin: Warm and Dry; Negative Rash
Neuro: AO x 3
Psych: Calm
Data Reviewed
-
Diagnostic Radiology: Report Reviewed by me
Labs: Labs Reviewed by me
[2025-01-21] MEDS: LYRICA 200 MG PO ×2 (07:56→19:39)
[2025-01-21] MEDS: PAMELOR 25 MG PO ×2 (07:57→19:39)
[2025-01-21] MEDS: SUBUTEX 8 MG SL ×2 (07:57→19:39)
[2025-01-21] MEDS: MORPHINE SULFATE 2 MG IV ×3 (08:04→20:37)
[2025-01-21 08:10] LABS: Glucose - Point of Care 187 mg/dl (70-99)
[2025-01-21 08:15] LABS: Hepatitis B Surface Antigen Negative (Negative)
[2025-01-21] MEDS: NOVOLOG FLEXPEN-LOW RESISTANCE 1 UNITS SC (08:17)
--- NOTE | 2025-01-21 08:57 | W.PN.GS2 ---
Today's Communication / Plan
-
Continue piperacillin�tazobactam (day 05/22)
Clear liquid diet for now
Low-fat diet this afternoon
Repeat CBC, CMP tomorrow AM
Assessment / Plan
-
Assessment: Patient is a 50-year-old male who presented to the emergency department with back and right upper quadrant pain with nausea vomiting. Since admission, patient has been febrile to 103.1 and intermittently tachycardic. Physical exam
revealed RUQ tenderness to palpation. Abdominal ultrasound and CTAP revealed a distended gallbladder with cholelithiasis, mild gallbladder wall thickening, and mild CBD enlargement (7.7 mm). Lab studies remarkable for a T. bili of 6.3, AST 347,
and ALT 263. Patient underwent laparoscopic cholecystectomy with IOC (01/20), which suggested diagnosis of acute calculous cholecystitis and biliary sepsis.
AFVSS and surgery, no leukocytosis, improving abdominal exam
Continued elevations of T. bili (6.7), AST (334), ALT (285)
PPD #1: EUS (01/20) revealed no choledocholithiasis
POD #1: Laparoscopic cholecystectomy with IOC (01/20), which revealed biliary sludge
Plan:
Antibiotics: Piperacillin�tazobactam (day 05/22)
CLD for now
Low-fat diet starting this afternoon
Repeat CBC, CMP tomorrow AM
Pain control, antiemetics as needed
Discontinue Randolph catheter
Incentive spirometry
Subjective Data
-
Date of Service: January 21, 2025
Patient seen at bedside POD #1 (laparoscopic cholecystectomy w/ IOC). Feels sore on right side, but no pain. Better overall than yesterday. No nausea or vomiting. Appetite increasing. No BM, but passing some flatus. Denies fever, fatigue or chills.
Objective Data
-
Intake and Output
01/20/25 01/21/25 01/22/25
06:59 06:59 06:59
Intake Total 1300 / 1300 2995 / 2995
Output Total 2349
Balance 1300 / 1300 645 / 645
Intake:
Oral fluids 0 / 0 495 / 495
IV fluids (Total) 1200 / 1200 2400 / 2400
LR 500 / 500
Normosol 300 / 300
IV piggybacks 100 / 100 100 / 100
Output:
Urine, Randolph 2349
Other:
Number of approximated MODERATE 1
amounts of urine
Vital Signs
Temp Pulse Resp BP Pulse Ox
97.5 F 80 16 129/69 97
01/21/25 07:58 01/21/25 07:33 01/21/25 07:33 01/21/25 07:33 01/21/25 07:33
Lab Results
01/21/25 04:04
Calcium 8.1 mg/dl (8.4-10.2) L 01/21/25 04:04
Magnesium 1.8 mg/dl (1.6-2.3) 01/20/25 07:51
Total Bilirubin 6.7 mg/dl (0.2-1.3) H 01/21/25 04:04
Direct Bilirubin 3.9 mg/dl (0.0-0.4) H 01/20/25 07:51
AST 334 U/L (17-59) H 01/21/25 04:04
ALT 285 U/L (0-50) H 01/21/25 04:04
Alkaline Phosphatase 102 U/L (38-126) 01/21/25 04:04
Total Protein 6.0 g/dl (6.3-8.2) L 01/21/25 04:04
Albumin 3.6 g/dl (3.5-5.0) 01/21/25 04:04
Physical Exam
-
General: NAD. AAO x3. No jaundice or scleral icterus appreciated.
Abdominal: Soft, mildly tender on right side, appropriate given surgery yesterday. Nondistended. No rigidity, guarding, or rebound tenderness. Surgical sites CDI.
Patient has a randolph catheter: Yes
Patient has a central line: No
[2025-01-21 12:29] LABS: Glucose - Point of Care 282 mg/dl (70-99)
[2025-01-21] MEDS: NOVOLOG FLEXPEN-LOW RESISTANCE 3 UNITS SC ×2 (12:35→17:26)
[2025-01-21 12:45] LABS: Blood Urea Nitrogen 17 mg/dl (9-20); Calcium 8.1 mg/dl (8.4-10.2); Carbon Dioxide 23 mmol/L (22-30); Chloride 102 mmol/L (98-107); Estimated Creatinine Clearance > 125 ml/min; Glucose 224 mg/dl (70-99); Potassium 4.1 mmol/L (3.5-5.1); Sodium 131 mmol/L (135-145); eGFR > 60.00
--- NOTE | 2025-01-21 13:27 | W.PN.GI.CBS2 ---
Today's Communication / Plan
-
s/p EUS 01/20 as noted withLA Grade C reflux esophagitis. erythema in gastric body, no pathology of CBD, enlarged nodes in roberto hepatis, pancreatic stranding no liver pathology
s/p lap keila 01/20
pt feeling better today and fever resolved
still with some elevated LFT's cont to trend, repeat INR/platelet in AM
advancing diet
add PPI daily with esophagitis noted on EUS
blood cx neg so far
hepatitis panel neg no immunity
eventual work up for marked splenomegaly/hepatomegaly-- also noted mild INR elevation and drop in platelets and denies ETOH use
OP follow up for complaints of dysphagia and chronic constipation
OP follow with
Assessment / Plan
-
Pt is a 50yo with hx DM, possible gastroparesis with prior + GE scan but had been on Ozempic, chronic back pain with pain stimulator, HTN, diverticulitis, IBS- constipation, sleep apnea, HTN, hyperlipidemia presents with mid back pain. On admission
noted with bili 1.5, D bili 0.9, AST 114, ALT 55, alk phos 69 and lipase of 51. After admission pt was noted with fever and rise in LFT's to 6.3, AST 347, ALT 263. platelets drop to 124 after admission INR 1.51 Ct on admission distended
gallbladder with stones, HM, moderate to severe splenomegaly, diverticulosis, bladder distention, diastasis with fat containing abd wall hernia, DDD, spinal stimulator, US limited with prominent GB with stones no fluid no tenderness with transducer,
mildly enlarge CBD non intrahepatic dilatation. Pt was also noted with suicidal ideations and placed on 1:1 on admission. In review with patient he admits to chronic back pain. He had atypical mid back pain several weeks ago then recurrence with
nausea prompting admission. He also had epigastric pain that is worse about 10 minutes after eating and with movement. He was on Ozempic with increased nausea and stopped 6 months ago but admits to 40 lbs wt loss. He has chronic dysphagia with
dry throat and food sticking at time in upper esophagus and chronic constipation with no change in stool with use of linzess 290mcg daily and weekly BM. He denies change in stool color but did have dark urine since admission. Pt denies narcotic use
or anticoagulation. on chronic Meloxicam.
EUS: MADELEINE 01/20 - LA Grade C reflux esophagitis. erythema in gastric body, no pathology of CBD, enlarged nodes in roberto hepatis, pancreatic stranding no liver pathology
01/20- OR Distended gallbladder with both acute and probable chronic inflammation
Laboratory Tests
01/19/25 01/20/25 01/20/25
06:26 07:51 16:07
Total Bilirubin 1.5 H 6.3 H D 6.6 H
Direct Bilirubin 0.9 H 3.9 H
AST 114 H 347 H 307 H
ALT 55 H 263 H 254 H
Alkaline Phosphatase 69 97 104
01/21/25
04:04
Total Bilirubin 6.7 H
Direct Bilirubin
AST 334 H
ALT 285 H
Alkaline Phosphatase 102
-cholecystitis with mid back/epigastric pain/elevated LFT's-- s/p neg EUS and lap keila 01/20
-grade C esophagitis on EUS
-fever- resolved
-recent 40 lb wt loss s/p Ozempic use 6 months ago
-elevated INR
-mild thrombocytopenia
-suicidal ideation with 1:1 on admission
-imaging with moderate to severe splenomegaly/hepatomegaly
-chronic dysphagia
-chronic constipation
-bladder distention per imaging
other med problems:
-chronic back pain with spinal stimulator/meloxicam use
-diverticulitis
-diastasis with fat containing abd wall hernia on imaging
-DM-hx gastroparesis but imaging done on Ozempic
-HTN
-sleep apena
-hyperlipidemia
-
PLAN:
s/p EUS 01/20 as noted withLA Grade C reflux esophagitis. erythema in gastric body, no pathology of CBD, enlarged nodes in roberto hepatis, pancreatic stranding no liver pathology
s/p lap keila 01/20
pt feeling better today and fever resolved
still with some elevated LFT's cont to trend repeat INR and platelets in AM
advancing diet
add PPI daily with esophagitis noted on EUS
blood cx neg so far
hepatitis panel neg no immunity
eventual work up for marked splenomegaly/hepatomegaly-- also noted mild INR elevation and drop in platelets and denies ETOH use
OP follow up for complaints of dysphagia and chronic constipation
OP follow with
Subjective
Subjective
Date of Service: January 21, 2025
Pt feeling much better, low fat diet to start-- fever and back pain resolved
Objective
Data Reviewed
Laboratory Data:
Laboratory Results
01/21/25 04:04
01/21/25 12:19
Laboratory Results
PT 18.7 Sec (11.4-14.6) H 01/20/25 10:19
INR 1.51 01/20/25 10:19
Magnesium 1.8 mg/dl (1.6-2.3) 01/20/25 07:51
Total Bilirubin 6.7 mg/dl (0.2-1.3) H 01/21/25 04:04
AST 334 U/L (17-59) H 01/21/25 04:04
ALT 285 U/L (0-50) H 01/21/25 04:04
Alkaline Phosphatase 102 U/L (38-126) 01/21/25 04:04
Lipase 51 U/L (23-300) 01/19/25 06:26
Vital Signs and I&O:
Vital Signs
Temp Pulse Resp BP Pulse Ox
97.6 F 74 17 128/71 94
01/21/25 12:08 01/21/25 12:00 01/21/25 12:00 01/21/25 12:00 01/21/25 12:00
I&O
01/20/25 01/21/25 01/22/25
06:59 06:59 06:59
Intake Total 1300 / 1300 2995 / 2995
Output Total 2350 / 2350 650 / 650
Balance 1300 / 1300 645 / 645 -650 / -650
Physical Exam
Physical Exam
HEENT: Anicteric and Moist mucous membranes
Cardiology: Normal Sinus Rhythm
Pulmonary: Clear
GI: Soft, Non Distended and Tender (mild around incision sites )
Extremities: No Edema
Neuro: Non Focal
[2025-01-21] MEDS: PROTONIX 40 MG PO (14:41)
--- NOTE | 2025-01-21 15:29 | CM ---
POD #1 keila. IV/AB, Clear liquids advance to low-fat diet. Discharge POC: Anticipate home with no needs.
--- NOTE | 2025-01-21 16:06 | PTCARENOTE ---
Assumed care of patient at beginning of this shift from previous RN with O2 4L n/c in use; able to wean to RA. Currently POx 97%. Morphine added by provider to patient's prn meds; administered twice as of this time with relief. Patient OOB to chair
for a few hours today. Zuniga catheter d/c'd as ordered; patient still due to void. He states he is passing gas; tolerated regular diet for lunch. Repeat BMP showed CO2 23. Currently receiving LR @ 80ml/hr. Patient downgraded to telemetry by Dr "Marlene"Easton. See worklist for full assessment and vital signs.
[2025-01-21 17:36] LABS: Glucose - Point of Care 253 mg/dl (70-99)
--- NOTE | 2025-01-21 18:01 | PTCARENOTE ---
Addendum entered by Adrianne Kaur RN 01/21/25 18:32:
Patient transferred by 2 ignition specialist via wheelchair accompanied by ; report given to Kavita.
Original Note:
Patient to go to room 2114; report given. at bedside; both her and patient updated.
[2025-01-21 21:48] LABS: Glucose - Point of Care 272 mg/dl (70-99)
[2025-01-22] MEDS: ZOSYN 50 IV ×3 (00:06→11:56)
[2025-01-22] MEDS: MORPHINE SULFATE 2 MG IV ×2 (00:40→05:48)
[2025-01-22] MEDS: TORADOL 10 MG IV ×2 (01:08→10:22)
[2025-01-22 03:12] VITALS: BP 131/72
[2025-01-22 06:44] LABS: INR 1.15; PT 15.0 Sec (11.4-14.6)
[2025-01-22 06:45] LABS: Hematocrit 33.7 % (39.0-52.0); Hemoglobin 11.8 g/dL (13.0-18.0); Mean Corp Hgb Conc. 35.0 g/dL (33.0-37.0); Mean Corpuscular Volume 85.1 fL (80.0-94.0); Nucleated Red Blood Cells % 0 % (-); Platelet Count 121 10^3/uL (130-400); Red Cell Dist. Width 14.0 % (11.5-14.5)
[2025-01-22 07:21] LABS: ALT (SGPT) 218 U/L (0-50); AST (SGOT) 140 U/L (17-59); Albumin 3.3 g/dl (3.5-5.0); Alkaline Phosphatase 111 U/L (38-126); Blood Urea Nitrogen 14 mg/dl (9-20); Calcium 8.0 mg/dl (8.4-10.2); Carbon Dioxide 26 mmol/L (22-30); Chloride 103 mmol/L (98-107); Estimated Creatinine Clearance > 125 ml/min; Glucose 196 mg/dl (70-99); Magnesium 2.3 mg/dl (1.6-2.3); Potassium 3.6 mmol/L (3.5-5.1); Sodium 134 mmol/L (135-145); Total Protein 5.6 g/dl (6.3-8.2); eGFR > 60.00
[2025-01-22 07:40] VITALS: BP 146/79
[2025-01-22 08:16] LABS: Glucose - Point of Care 199 mg/dl (70-99)
[2025-01-22] MEDS: LR IV ×2 (08:20→08:21)
[2025-01-22] MEDS: SUBUTEX 8 MG SL (08:20)
[2025-01-22] MEDS: PROTONIX 40 MG PO (08:20)
[2025-01-22] MEDS: LYRICA 200 MG PO (08:20)
[2025-01-22] MEDS: NOVOLOG FLEXPEN-LOW RESISTANCE 1 UNITS SC (08:22)
[2025-01-22] MEDS: PAMELOR 25 MG PO (08:55)
--- NOTE | 2025-01-22 09:39 | W.PN.GS2 ---
Today's Communication / Plan
-
Diet as tolerated
ABX x4 days
Assessment / Plan
-
50 yo male ACC with biliary sepsis and suspected ascending cholangitis
PPD #1 ERCP without choledocholithiasis
POD #2 Lap keila with IOC
Afebrile, VSS
Tolerating diet
No leukocytosis. LFT's trending down
Sepsis resolved
Voiding s/p randolph removal yesterday
Plan:
Continue ADA/Low fat diet as tolerated
OOB/Ambulate
Ok for abd binder for comfort
Analgesics prn
ABX x4 days post op, ok to transition to PO Augmentin upon d/c to complete course
SCDs/Lovenox for VTE ppx
Ok from surgical standpoint for discharge. D/W hospitalist
Subjective Data
-
Date of Service: January 22, 2025
Pt seen and examined at bedside with Dr. Guan. OOB to chair. Feels less discomfort to incisions with abdominal binder on. Denies n/v. Tolerating diet.
Objective Data
-
Intake and Output
01/21/25 01/22/25 01/23/25
06:59 06:59 06:59
Intake Total 2995 / 2995 2079 / 2079
Output Total 2350 / 2350 2074 / 2074
Balance 645 / 645 5 / 5
Intake:
Oral fluids 495 / 495 120 / 120
IV fluids (Total) 2400 / 2400 1760 / 1760
LR 500 / 500
Normosol 300 / 300
IV piggybacks 100 / 100 200 / 200
Output:
Urine, Randolph 2350 / 2350 650 / 650
Urine, Voided 1425 / 1425
Vital Signs
Temp Pulse Resp BP Pulse Ox
98.2 F 67 16 146/79 95
01/22/25 07:40 01/22/25 07:40 01/22/25 07:40 01/22/25 07:40 01/22/25 07:40
Lab Results
01/22/25 05:35
01/22/25 05:35
Calcium 8.0 mg/dl (8.4-10.2) L 01/22/25 05:35
Magnesium 2.3 mg/dl (1.6-2.3) 01/22/25 05:35
Total Bilirubin 2.4 mg/dl (0.2-1.3) H D 01/22/25 05:35
Direct Bilirubin 3.9 mg/dl (0.0-0.4) H 01/20/25 07:51
AST 140 U/L (17-59) H 01/22/25 05:35
ALT 218 U/L (0-50) H 01/22/25 05:35
Alkaline Phosphatase 111 U/L (38-126) 01/22/25 05:35
Total Protein 5.6 g/dl (6.3-8.2) L 01/22/25 05:35
Albumin 3.3 g/dl (3.5-5.0) L 01/22/25 05:35
Physical Exam
-
NAD, flat affect
ABD soft, nd, expected incisional tenderness
Incisions well approximated, intact glue
--- NOTE | 2025-01-22 10:36 | W.PN.GI.CBS2 ---
Today's Communication / Plan
-
Okay for discharge from a GI perspective would repeat CMP and CBC in 2 weeks
Follow-up with Dr. Ramirez outpatient within 2 months
Assessment / Plan
-
Pt is a 50yo with hx DM, possible gastroparesis with prior + GE scan but had been on Ozempic, chronic back pain with pain stimulator, HTN, diverticulitis, IBS- constipation, sleep apnea, HTN, hyperlipidemia presents with mid back pain. On admission
noted with bili 1.5, D bili 0.9, AST 114, ALT 55, alk phos 69 and lipase of 51. After admission pt was noted with fever and rise in LFT's to 6.3, AST 347, ALT 263. platelets drop to 124 after admission INR 1.51 Ct on admission distended
gallbladder with stones, HM, moderate to severe splenomegaly, diverticulosis, bladder distention, diastasis with fat containing abd wall hernia, DDD, spinal stimulator, US limited with prominent GB with stones no fluid no tenderness with transducer,
mildly enlarge CBD non intrahepatic dilatation. Pt was also noted with suicidal ideations and placed on 1:1 on admission. In review with patient he admits to chronic back pain. He had atypical mid back pain several weeks ago then recurrence with
nausea prompting admission. He also had epigastric pain that is worse about 10 minutes after eating and with movement. He was on Ozempic with increased nausea and stopped 6 months ago but admits to 40 lbs wt loss. He has chronic dysphagia with
dry throat and food sticking at time in upper esophagus and chronic constipation with no change in stool with use of linzess 290mcg daily and weekly BM. He denies change in stool color but did have dark urine since admission. Pt denies narcotic use
or anticoagulation. on chronic Meloxicam.
EUS: MADELEINE 01/20 - LA Grade C reflux esophagitis. erythema in gastric body, no pathology of CBD, enlarged nodes in roberto hepatis, pancreatic stranding no liver pathology
01/20- OR Distended gallbladder with both acute and probable chronic inflammation
Laboratory Tests
01/19/25 01/20/25 01/20/25
06:26 07:51 16:07
Total Bilirubin 1.5 H 6.3 H D 6.6 H
Direct Bilirubin 0.9 H 3.9 H
AST 114 H 347 H 307 H
ALT 55 H 263 H 254 H
Alkaline Phosphatase 69 97 104
01/21/25
04:04
Total Bilirubin 6.7 H
Direct Bilirubin
AST 334 H
ALT 285 H
Alkaline Phosphatase 102
-cholecystitis with mid back/epigastric pain/elevated LFT's-- s/p neg EUS and lap keila 01/20
-grade C esophagitis on EUS
-fever- resolved
-recent 40 lb wt loss s/p Ozempic use 6 months ago
-elevated INR
-mild thrombocytopenia
-suicidal ideation with 1:1 on admission
-imaging with moderate to severe splenomegaly/hepatomegaly
-chronic dysphagia
-chronic constipation
-bladder distention per imaging
other med problems:
-chronic back pain with spinal stimulator/meloxicam use
-diverticulitis
-diastasis with fat containing abd wall hernia on imaging
-DM-hx gastroparesis but imaging done on Ozempic
-HTN
-sleep apena
-hyperlipidemia
-
s/p EUS 01/20 as noted withLA Grade C reflux esophagitis. erythema in gastric body, no pathology of CBD, enlarged nodes in roberto hepatis, pancreatic stranding no liver pathology
s/p lap keila 01/20
01/22/25
pt feeling better today and fever resolved
added PPI daily with esophagitis noted on EUS
blood cx neg so far
hepatitis panel neg no immunity
eventual work up for marked splenomegaly/hepatomegaly-- also noted mild INR elevation and drop in platelets and denies ETOH use
OP follow up for complaints of dysphagia and chronic constipation
OP follow with
01/22/2025 liver chemistries and bilirubin have dramatically improved
Okay for diet per surgery and discharge per GI
Will need to go home on PPI in the setting of grade C esophagitis and follow-up with Dr. Ramirez
Subjective
Subjective
Date of Service: January 22, 2025
Patient much improved tolerating diet.
Has not had a bowel movement but his baseline is once a week on Linzess
Objective
Data Reviewed
Laboratory Data:
Laboratory Results
01/22/25 05:35
01/22/25 05:35
Laboratory Results
PT 15.0 Sec (11.4-14.6) H 01/22/25 05:36
INR 1.15 01/22/25 05:36
Magnesium 2.3 mg/dl (1.6-2.3) 01/22/25 05:35
Total Bilirubin 2.4 mg/dl (0.2-1.3) H D 01/22/25 05:35
AST 140 U/L (17-59) H 01/22/25 05:35
ALT 218 U/L (0-50) H 01/22/25 05:35
Alkaline Phosphatase 111 U/L (38-126) 01/22/25 05:35
Lipase 51 U/L (23-300) 01/19/25 06:26
Vital Signs and I&O:
Vital Signs
Temp Pulse Resp BP Pulse Ox
98.2 F 67 16 146/79 95
01/22/25 07:40 01/22/25 07:40 01/22/25 07:40 01/22/25 07:40 01/22/25 07:40
I&O
01/21/25 01/22/25 01/23/25
06:59 06:59 06:59
Intake Total 2995 / 2995 2079 / 2079
Output Total 2350 / 2350 2074 / 2074 800 / 800
Balance 645 / 645 5 / 5 -800 / -800
Physical Exam
Physical Exam
HEENT: Other (Mildly icteric)
Cardiology: Normal Sinus Rhythm
GI: Soft and Normal Bowel Sounds
Neuro: Non Focal
--- NOTE | 2025-01-22 10:52 | W.PN.HOSP.TC ---
Today's Communication/Plan
-
approaching DC. Patient to continue antibiotic course through 01/24
Assessment / Plan
Assessment / Plan
Mr. Reji Dennis is a 50 yo man with hx HLD, NIDDM, chronic back pain with spinal stimulator presents to the ER right mid back pain found to have e/o cholecystitis. s/p ERCP without finding obstructing stone; s/p surgery with finding of inflamed
gallbladder
CT A/P
IMPRESSION:
1. Severely distended gallbladder containing cholelithiasis (similar in appearance to 11/13/2023).
2. Mild hepatomegaly.
3. Moderate to severe splenomegaly with progressive slow interval increase in size of the spleen dating back to 03/25/2013. Diagnostic possibilities are (1) portal hypertension, (2) anemia, or (3) neoplastic disease (myeloproliferative disease or
lymphoma).
4. Moderate diverticulosis in the sigmoid colon.
5. Moderate distention of the urinary bladder.
6. Severe midline diastases of the rectus abdominis muscles with a small fat-containing anterior abdominal wall hernia.
7. Severe multilevel discogenic degenerative disease and facet joint arthrosis in the lumbar spine.
8. Spinal stimulator in place.
Abdomen US:
IMPRESSION:
Relative prominent size gallbladder containing stones with mild wall thickening, no pericholecystic fluid. No tenderness is elicited with the ultrasound transducer over the gallbladder. Mildly enlarged common bile duct. No findings to suggest
intrahepatic biliary tract dilatation.
ERCP report 01/20/25:
Impression:
- LA Grade C reflux esophagitis.
- Erythematous mucosa in the gastric body.
- Normal duodenal bulb, first portion of the duodenum and second
portion of the duodenum.
- There was no sign of significant pathology in the common bile
duct.
- Multiple stones were visualized endosonographically in the
gallbladder body.
- A few enlarged lymph nodes were visualized in the roberto hepatis
region. Consistent with.
- Pancreatic parenchymal abnormalities consisting of hyperechoic
strands and hyperechoic foci were noted in the pancreatic head and
pancreatic body.
- There was no sign of significant pathology in the ampulla.
- There was no evidence of significant pathology in the left lobe
of the liver.
- No specimens collected.
Operative Report 01/20/25
Post-op Diagnosis: Acute calculous cholecystitis; biliary sepsis
Morbid obesity with BMI 43 and secondary hepatomegaly
Distended gallbladder with both acute and probable chronic inflammation. Cyst needle decompression revealing dark sludge thick bile.
Acute Cholecystitis
Sepsis 2/2 Above
-admitted to med/surg; transferred to IMU post-op given confusion post anesthesia and high fevers; now on telemetry
-s/p ERCP on 01/20 without finding obstructing choledocholithiasis
-s/p OR following ERCP with finding of distended gallbladder with acute and likely chronic inflammation; dark sludge thick bile likely resulting in obstructive jaundice/cholangitis
-now fever free post surgery, tolerating diet
-pain control with PRN IV Toradol - patient has bad reaction to dilaudid; he wants to try PRN morphine at low dose
-IV Zofran PRN
-appreciate GS consult and GI consults
-patient medically ready for DC but remains sore and thinks may need another night for pain control - I will call this afternoon to discuss
Non-Gap Metabolic Acidosis
-repeat labs at 10AM
NIDDM
-hold COTTON CLASSER metformin and Farxiga
-ISS
Report of SI - this occurred when patient was confused from Dilaudid. He is of sound mind this morning and denies any SI
-DC 1:1
Chronic Pain
Spinal Stimulator
-COTTON CLASSER Suboxone
-COTTON CLASSER Nortriptyline, Pregabalin
DVT PPx SCD
FULL CODE
51 minutes spent on patient care
Anticipated Discharge: Within 24 hours
Subjective/Interval History
-
Date of Service: January 22, 2025
He is still sore
Eating and drinking OK
Objective Data
-
Labs:
Laboratory Results
01/22/25 01/22/25
05:35 05:36
WBC 5.4
Hgb 11.8 L
Hct 33.7 L
Plt Count 121 L
PT 15.0 H
INR 1.15
Sodium 134 L
Potassium 3.6
Chloride 103
Carbon Dioxide 26
BUN 14
Creatinine 0.5 L
Glucose 196 H
Calcium 8.0 L
Total Bilirubin 2.4 H D
AST 140 H
ALT 218 H
Alkaline Phosphatase 111
Vital Signs:
Vital Signs
Temp Pulse Resp BP Pulse Ox
98.2 F 67 16 146/79 95
01/22/25 07:40 01/22/25 07:40 01/22/25 07:40 01/22/25 07:40 01/22/25 07:40
I&O
01/21/25 01/22/25 01/23/25
06:59 06:59 06:59
Intake Total 2995 / 2995 2079 / 2079
Output Total 2350 / 2350 2074 / 2074 800 / 800
Balance 645 / 645 5 / 5 -800 / -800
Review of Systems
-
History Source: Patient
All other systems: Reviewed and negative
Physical Exam
-
General: No Apparent Distress and Obese
HEENT: PERRLA
Respiratory: Clear to Auscultation; Negative Wheezes
Cardiac: Regular Rhythm and S1/S2
GI: Soft, Nontender and Nondistended
Musculoskeletal: No Edema
Skin: Warm and Dry; Negative Rash
Neuro: AO x 3
Psych: Calm
Data Reviewed
-
Diagnostic Radiology: Report Reviewed by me
Labs: Labs Reviewed by me
[2025-01-22 11:20] VITALS: BP 140/81
[2025-01-22 11:51] LABS: Glucose - Point of Care 245 mg/dl (70-99)
[2025-01-22] MEDS: NOVOLOG FLEXPEN-LOW RESISTANCE 2 UNITS SC (12:03)
--- NOTE | 2025-01-22 13:40 | W.DS.TRANS ---
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
-
Discharge Instructions:
Discharge Diagnosis/Procedures acute cholecystitis status post cholecystectomy
Diet Low Fat,Diabetic, Carb Controlled
Activity No strenuous activity
Additional Activity Do not lift over 20lbs for the next 2-3 weeks
Bathing Restrictions OK to Shower
Blood Work CBC and CMP to be ordered by your PCP in 2 weeks
.
Wound Care Allow the glue to flake off your incisions on
its own over the next 2-3 weeks.
Instructions:
Stand-Alone Forms:
Changes to Home Medications: Yes
Discharge Medications:
DC Medications w/original date entered in [facility]
atorvastatin 20 mg tablet 20 mg PO DAILY 11/28/22
Held on 01/22/25. Instructions: Resume on 01/24/25.
meloxicam 15 mg tablet 15 mg PO QPM 11/28/22
nortriptyline 25 mg capsule 25 mg PO BID 11/28/22
buprenorphine 8 mg-naloxone 2 mg sublingual film 1 film buccal BID 11/13/23
glycopyrronium tosylate 2.4 % towelette (Qbrexza) 1 applic topical HSPRN PRN forehead/stomach sweating 11/13/23
metformin 500 mg tablet,extended release 24 hr 1,500 mg PO QPM 11/13/23
testosterone 1 pump topical DAILY abdomen 11/13/23
therapeutic multivitamin 1 tab PO DAILY 11/13/23
dapagliflozin propanediol 10 mg tablet (Farxiga) 5 mg PO DAILY 01/19/25
linaclotide 145 mcg capsule (Linzess) 145 mcg PO DAILY@0730 01/19/25
pregabalin 200 mg capsule 200 mg PO BID 01/19/25
amoxicillin 875 mg-potassium clavulanate 125 mg tablet 1 tab PO Q12H #5 tabs 01/22/25
pantoprazole 40 mg tablet,delayed release 40 mg PO DAILY #60 tabs 01/22/25
Home Medication Changes
You have 2 1/2 more days of antibiotics to complete a 4 day course post gallbladder removal
You are started on Protonix for finding of some esophagitis (esophageal inflammation) on EGD
Your liver enzymes are improving, OK to resume your statin (Lipitor) in 2 days
Pending Results: Yes
Additional Pending Results:
pathology from EGD
--- NOTE | 2025-01-22 13:59 | CM ---
CM following re: discharge planning.
Reviewed pt's chart, met with pt.
Discharge order noted. Pt is aware, expressed his agreement and he stated his spouse and son works at and they will transport home.
No after care VN needs identified.
D/C plan: home no needs. Spouse to transport.
[2025-01-22 14:30] VITALS: BP 150/84
--- NOTE | 2025-01-22 14:57 | W.DCSUMMARY ---
Discharge Summary
Discharge Data
Date of Admission: 01/19/25
Date of Discharge: 01/22/25
-
Pending Results: No
Hospital Course
Discharging Physician : Dr. Sofya Mccormack
Disposition : Home
Primary care physician : Dr. Ruddy Bryan
Principal Discharge diagnosis : Acute Cholecystitis
Hospital Course :
Mr. Reji Dennis is a 50 yo man with hx HLD, NIDDM, chronic back pain with spinal stimulator presents to the ER right mid back pain stretching to right upper abdomen.
Triage vitals significant for hypertension. Labs without leukocytosis, elevated liver enzymes. CT with distended gallbladder with gallstones and abdominal US with mild wall thickening of gallbladder, no biliary tract dilation. Patient was started
on IV fluids, antibiotics and admitted to medicine with GS consulting. Overnight he had high fevers and an increase in liver enzymes. At this point GI consulted for ERCP. ERCP without finding of choledocholithiasis. Post ERCP he went for lap
cholecystectomy with finding of acute on chronic inflammation of gallbladder. Patient's fevers resolved and pain improved post surgery. His diet was advanced and he is tolerating a regular diet prior to discharge. He discharged with 2 1/2 more
days of Augmentin to complete a 4 day course post-op per GS recommendations.
EGD with finding of Grade C reflux esophagitis, and patient is started on Protonix at discharge. He will follow up with GI. Imaging with moderate/severe splenomegaly/hepatomegaly - will continue follow up with GI.
Of note, patient had Dilaudid in the ER and post administration became confused and reported SI. His mentation cleared the following day and he is of sound mind, has no feelings of suicidal ideation.
He is told to hold statin for a couple of days as liver enzymes continue to trend down.
Time spent on discharge was 35 minutes.
Important imaging findings :
CT A/P 01/19/25
IMPRESSION:
1. Severely distended gallbladder containing cholelithiasis (similar in appearance to 11/13/2023).
2. Mild hepatomegaly.
3. Moderate to severe splenomegaly with progressive slow interval increase in size of the spleen dating back to 03/25/2013. Diagnostic possibilities are (1) portal hypertension, (2) anemia, or (3) neoplastic disease (myeloproliferative disease or
lymphoma).
4. Moderate diverticulosis in the sigmoid colon.
5. Moderate distention of the urinary bladder.
6. Severe midline diastases of the rectus abdominis muscles with a small fat-containing anterior abdominal wall hernia.
7. Severe multilevel discogenic degenerative disease and facet joint arthrosis in the lumbar spine.
8. Spinal stimulator in place.
Abdomen US 01/19/25:
IMPRESSION:
Relative prominent size gallbladder containing stones with mild wall thickening, no pericholecystic fluid. No tenderness is elicited with the ultrasound transducer over the gallbladder. Mildly enlarged common bile duct. No findings to suggest
intrahepatic biliary tract dilatation.
Procedure findings :
ERCP report 01/20/25:
Impression:
- LA Grade C reflux esophagitis.
- Erythematous mucosa in the gastric body.
- Normal duodenal bulb, first portion of the duodenum and second
portion of the duodenum.
- There was no sign of significant pathology in the common bile
duct.
- Multiple stones were visualized endosonographically in the
gallbladder body.
- A few enlarged lymph nodes were visualized in the roberto hepatis
region. Consistent with.
- Pancreatic parenchymal abnormalities consisting of hyperechoic
strands and hyperechoic foci were noted in the pancreatic head and
pancreatic body.
- There was no sign of significant pathology in the ampulla.
- There was no evidence of significant pathology in the left lobe
of the liver.
- No specimens collected.
Operative Report 01/20/25
Post-op Diagnosis: Acute calculous cholecystitis; biliary sepsis
Morbid obesity with BMI 43 and secondary hepatomegaly
Distended gallbladder with both acute and probable chronic inflammation. Cyst needle decompression revealing dark sludge thick bile.
Discharge Plan
-
Patient Disposition: Home (Routine Discharge)
Discharge Diagnosis/Procedures: acute cholecystitis status post cholecystectomy
Diet: Low Fat and Diabetic, Carb Controlled
Activity: No strenuous activity
Additional Activity: Do not lift over 20lbs for the next 2-3 weeks
Bathing Restrictions: OK to Shower
Blood Work: CBC and CMP to be ordered by your PCP in 2 weeks.
Wound Care: Allow the glue to flake off your incisions on its own over the next 2-3 weeks.
Activity Restrictions/Additional Instructions:
Call your surgeon if you have fever >100.5 or nausea with vomiting
Referrals:
Amadeo Ramirez MD [Active, Gastroenterology]
Referral Note: follow up with Dr. Ramirez on [facility] in 3-4 weeks.
Ruddy Bryan MD [Family Provider, Family Practice] - in less than 1 week
Shadi Cisneros MD [Active, Surgical] - in two to four weeks
Additional Discharge Medication Instructions: You have 2 1/2 more days of antibiotics to complete a 4 day course post gallbladder removal
You are started on Protonix for finding of some esophagitis (esophageal inflammation) on EGD
Your liver enzymes are improving, OK to resume your statin (Lipitor) in 2 days
Please follow up with your PCP who will order labs to monitor your blood counts and liver enzyme levels.
Prescriptions:
New
pantoprazole 40 mg Tablet,Delayed Release (Dr/Ec)
40 mg PO DAILY Qty: 60 0RF
amoxicillin-pot clavulanate 875-125 mg tablet
1 tab PO Q12H Qty: 5 0RF
Continued
meloxicam 15 mg Tablet
15 mg PO QPM
nortriptyline 25 mg Capsule
25 mg PO BID
therapeutic multivitamin Tablet
1 tab PO DAILY
metformin 500 mg Tablet Extended Release 24 Hr
1,500 mg PO QPM
buprenorphine-naloxone 8-2 mg Film
1 film BUCCAL BID
testosterone 20.25 mg/1.25 gram (1.62 %) Gel In Metered-Dose Pump
1 pump TOPICAL DAILY
Qbrexza 2.4 % Towelette
1 applic TOPICAL HSPRN PRN (Reason: forehead/stomach sweating)
Patient Comments:
11/13/2023, prescribed HS but pt. takes HSPRN because he has trouble peeing after using it.
pregabalin 200 mg capsule
200 mg PO BID
Linzess 145 mcg capsule
145 mcg PO DAILY@0730
dapagliflozin propanediol [Farxiga] 10 mg tablet
5 mg PO DAILY
Held
atorvastatin 20 mg Tablet
20 mg PO DAILY
Hold Instructions: Resume on 01/24/25.
Discharge Orders:
Discharge Patient (As Directed); Ordered 01/22/25
Ordered By: Sofya Mccormack
Discharge Date and Time
Print Language: PANAMANIAN
== END 2025-01-22 15:20 | disposition home or self-care (01) | DRG 854 ==
LOC: 2 SOUTH 14:26
PROVIDERS: Internal Medicine Gastroenterology; Nurse Practitioner Adult Health; Nurse Practitioner Family; Radiology Neuroradiology; Student in an Organized Health Care Education/Training Program; Surgery; ADMITTING PHYSICIAN Student in an Organized Health Care Education/Training Program; CONSULT PHYSICIAN Surgery; EMERGENCY PHYSICIAN Emergency Medicine; FAMILY PHYSICIAN Family Medicine; OTHER PHYSICIAN Internal Medicine
PROC: 5A09357 Assistance with Respiratory Ventilation, Less than 24 Consecutive Hours, Continuous Positive Airway Pressure (ICD-10-PCS; 2025-01-19)
PROC: 0FT44ZZ Resection of Gallbladder, Percutaneous Endoscopic Approach (ICD-10-PCS; 2025-01-20)
PROC: BF131ZZ Fluoroscopy of Gallbladder and Bile Ducts using Low Osmolar Contrast (ICD-10-PCS; 2025-01-20)
PROC: 0DJ08ZZ Inspection of Upper Intestinal Tract, Via Natural or Artificial Opening Endoscopic (ICD-10-PCS; 2025-01-20)
DX: A41.9 Sepsis, unspecified organism (principal); E87.20 Acidosis, unspecified; K80.00 Calculus of gallbladder with acute cholecystitis without obstruction; R45.851 Suicidal ideations; Z68.41 Body mass index [BMI] 40.0-44.9, adult; G89.29 Other chronic pain; E78.00 Pure hypercholesterolemia, unspecified; G43.909 Migraine, unspecified, not intractable, without status migrainosus; I10 Essential (primary) hypertension; E11.43 Type 2 diabetes mellitus with diabetic autonomic (poly)neuropathy; K43.9 Ventral hernia without obstruction or gangrene; K76.0 Fatty (change of) liver, not elsewhere classified; N32.89 Other specified disorders of bladder; K82.8 Other specified diseases of gallbladder; G47.30 Sleep apnea, unspecified; M47.816 Spondylosis without myelopathy or radiculopathy, lumbar region; E11.65 Type 2 diabetes mellitus with hyperglycemia; D69.6 Thrombocytopenia, unspecified; R13.10 Dysphagia, unspecified; K21.00 Gastro-esophageal reflux disease with esophagitis, without bleeding; K31.89 Other diseases of stomach and duodenum; K86.9 Disease of pancreas, unspecified; R59.0 Localized enlarged lymph nodes; E66.01 Morbid (severe) obesity due to excess calories; K58.1 Irritable bowel syndrome with constipation; R79.1 Abnormal coagulation profile; R33.8 Other retention of urine; R16.2 Hepatomegaly with splenomegaly, not elsewhere classified; Z87.891 Personal history of nicotine dependence; Z96.82 Presence of neurostimulator; Z82.49 Family history of ischemic heart disease and other diseases of the circulatory system; Z79.1 Long term (current) use of non-steroidal anti-inflammatories (NSAID); Z79.84 Long term (current) use of oral hypoglycemic drugs; Z79.890 Hormone replacement therapy; Z90.49 Acquired absence of other specified parts of digestive tract; Z87.19 Personal history of other diseases of the digestive system
CPT/HCPCS: 74176; 74300; 76000; 76705; 80048; 80053; 81003; 82248; 82962; 83036; 83690; 83735; 85025; 85027; 85610; 86704; 86706; 86708; 86803; 87040; 87340; 88304; 96361; 96365; 96375; 99285; 99406; A4300

== ENCOUNTER → 2025-01-25 07:08 | Outpatient (REF) | payer OTHER, SELFPAY ==
[2025-01-25 08:56] LABS: Hematocrit 38.5 % (39.0-52.0); Hemoglobin 13.2 g/dL (13.0-18.0); Mean Corp Hgb Conc. 34.3 g/dL (33.0-37.0); Mean Corpuscular Volume 85.0 fL (80.0-94.0); Nucleated Red Blood Cells % 0 % (-); Platelet Count 184 10^3/uL (130-400); Red Cell Dist. Width 13.6 % (11.5-14.5)
[2025-01-25 10:25] LABS: ALT (SGPT) 104 U/L (0-50); AST (SGOT) 37 U/L (17-59); Albumin 4.0 g/dl (3.5-5.0); Alkaline Phosphatase 98 U/L (38-126); Blood Urea Nitrogen 8 mg/dl (9-20); Calcium 8.6 mg/dl (8.4-10.2); Carbon Dioxide 25 mmol/L (22-30); Chloride 104 mmol/L (98-107); Glucose 251 mg/dl (70-99); Potassium 3.9 mmol/L (3.5-5.1); Sodium 137 mmol/L (135-145); Total Protein 6.4 g/dl (6.3-8.2); eGFR > 60.00
== END ==
LOC: REG 07:08
PROVIDERS: ATTENDING PHYSICIAN Family Medicine
DX: E78.2 Mixed hyperlipidemia (principal); E11.65 Type 2 diabetes mellitus with hyperglycemia
CPT/HCPCS: 36415; 80053; 85025